=== PATIENT | male | born 1980 | race Caucasian/White ===

== ENCOUNTER 2021-08-18 15:28 | Emergency (ER) | payer OTHER, SELFPAY ==
--- NOTE | ~2021-08-18 | XR_ITS ---
EXAMINATION: RIGHT HAND AND WRIST CLINICAL INFORMATION: Laceration of ring finger COMPARISON: None TECHNIQUE: 4 views of the hand and wrist FINDINGS: There is a soft tissue laceration of the distal ring finger. There is an associated defect of bone, acute fracture avulsion, of the ulnar side of the distal tuft of the distal phalanx of the ring finger. XR/XR hand wrist RT IMPRESSION: Soft tissue laceration. Small avulsion of bone from the distal tuft at the ulnar side of the bone involving the distal phalanx of the ring finger.
[2021-08-18 15:39] VITALS: BP 131/96; PULSE 86; RESP 16; TEMP 36.8; O2SAT 96; BMI 31.9
[2021-08-18] MEDS: oxyCODONE HCl Immed Release 5 MG TABLET PO (15:52)
--- NOTE | 2021-08-18 16:09 | ED.WOUNDLAC ---
HPI - Wound/Laceration General Chief Complaint: Wound/Laceration Stated Complaint: hand lac Time Seen by Provider: 08/18/21 15:38 Source: patient Mode of arrival: ambulatory Limitations: no limitations History of Present Illness HPI narrative: This is a 41-year-old male that presents to the emergency department from home status post cutting himself with a table saw, 15 minutes prior to arrival. He cut the distal aspect his right 4th digit. He reports 10/10 throbbing pain. He states that that table saw was not archie, and had a clean blade. He does not think that there are any foreign bodies within the laceration. He is unsure if he is up-to-date on his tetanus shot. He denies any medical problems. He is [id number]. He denies numbness, and tingling. He denies chest pain, shortness of breath, fevers, chills. He is not currently taking blood thinners Onset (ago): hour(s) (1) Location: other (Right 4th digit) Extremity Location: right: hand Place: home Patient tetanus UTD: No Context: accidental Associated symptoms: pain Treatments prior to arrival: bandage Related Data Previous Rx's Medication Instructions Recorded cephalexin 500 mg capsule 500 mg PO BID 10 Days #20 cap 08/18/21 oxycodone 5 mg tablet 5 mg PO BID PRN #10 tab 08/18/21 Allergies Allergy/AdvReac Type Severity Reaction Status Date / Time bee pollen [bee stings] Allergy Swelling Verified 08/18/21 15:38 Review of Systems Review of Systems: Constitutional : No Fever, No Chills, Cardiovascular : No Chest Pain, No SOB Respiratory : No Dyspnea Gastrointestinal : No abdominal pain Musculoskeletal : No Joint Swelling Skin : + skin laceration to right 4th digit, No Foreign bodies, No rash, No surrounding erythema Neuro : No Weakness, No Numbness/tingling Psych : No SI/HI/thoughts of self injury Yes all other systems are reviewed and are negative [facility] Past Medical History Attestation statement: The following information was validated with the patient. Source: old records reviewed Social History Social History Advance Directives: No Advance Directives Information Provided: No Physical Exam Vital Signs: Vital Signs: Last Vital Signs Temp 98.3 F 08/18/21 15:39 Pulse 86 09/17/21 15:39 Resp 16 08/18/21 15:39 BP 131/96 H 08/18/21 15:39 Pulse Ox 96 08/18/21 15:39 Body Mass Index 31.9 vital signs have been reviewed as normal and appeared to be correct. Blood pressure normal. Heart rate normal. Respiration rate normal. Temperature normal. Oxygen saturation normal. Appearance: Alert. Oriented X3. No acute distress. Patient is pacing around the room, in no evident pain. Head: Normal external exam. Normocephalic. Atraumatic. Neck: Normal inspection. Neck supple. FROM. CVS: Normal heart rate and rhythm. Heart sound normal. Pulses normal throughout. No murmurs/rales/gallops. Respiratory: No respiratory distress. Painless inspiration. Back: Full range of motion noted. Skin: Skin warm and dry. Normal skin color. Normal skin turgor. No rashes/lesions/lacerations noted. Extremities: Extremities exhibit normal range of motion. + Right fouth digit distal aspect has a 4 cm jagged laceration with active bleeding that is controlled. No foreign bodies noted, or obvious deformities. No nail involvement or nail bed involvement noted. No ligamentous or nerve injury noted. No obvious deformities are noted. Neuro: Oriented X 3. No motor deficit. No sensory deficit. Reflexes normal. Normal steady gait. No focal neuro deficits noted. Vascular: + radial pulses/+ 2 distal pedal pulses/+2 dorsalis pedis b/l. Normal cap refill. No cyanosis noted to upper extremity nails and lower extremity toes nails. Course Course Course Narrative: This is a 41-year-old male that presents to the emergency department 15 minutes after cutting himself with a clean, non archie table saw. He cut his right 4th digit. There is a 4 cm jagged laceration noted to the distal aspect of the 4th digit. The bleeding is well controlled. There is no signs of arterial bleeding. There is also no signs of foreign body, or other gross abnormalities. He is unsure of his tetanus status. He is not currently on blood thinners. He is right-hand dominant. Due to the mechanism of injury, and x-ray of the right hand has been ordered to rule out foreign bodies and fractures The x-ray shows a small avulsion fracture to the right 4th digit. The laceration has been closed using 4-0 non dissolvable sutures. Nine sutures were applied to the area. He tolerated the procedure well. Plan: He has been instructed to return in 10 days, or go to his primary care provider or an urgent care to get the sutures removed. He has been educated on signs of infection, and he is aware of the plan. He has no further questions or concerns at this time. He was given medication for pain control. He will also be sent home with antibiotics, since this is technically considered an open fracture. MDM - Wound/Laceration Imaging Data X-ray of the right hand: Attestation: I personally reviewed and interpreted this imaging study as follows: Radiologist's impression: FINDINGS: There is a soft tissue laceration of the distal ring finger. There is an associated defect of bone, acute fracture avulsion, of the ulnar side of the distal tuft of the distal phalanx of the ring finger.? XR/XR hand wrist RT IMPRESSION: Soft tissue laceration. Small avulsion of bone from the distal tuft at the ulnar side of the bone involving the distal phalanx of the ring finger.? Procedures Laceration Laceration 1: Site: hand (Right worse digit. Distal ventral aspect) Side (If applicable): right Size (cm): 4 Description: other (Jagged) Depth: simple, single layer Local Anesthetic: lidocaine 1% Amount of anesthesia used (mL): 5 Pre-repair: wound explored, irrigated extensively and deep structures intact Skin layer closed with: nylon Size (cm): 4-0 Number of sutures: 9 Technique: simple, interrupted Discharge Plan Discharge Clinical Impression: Laceration, Avulsion fracture Patient Disposition: Home, Self-Care Instructions: Finger Laceration (ED), Finger Fracture (ED) Additional Instructions: Insure to clean this wound with soap and water. Keeparea clean and dry at all times. Look out for signs of infection such as discharge from the wound, fevers, chills, excruciating pain. If any of the symptoms arise please contact your PCP, return to the emergency department with new or worsening symptoms. Please ensure to take your antibiotics as directed it is important that you take them all, and do not stop taking them early. Return to the emergency department in 10 days for suture removal. You currently have 9 sutures to your left 4th finger. Prescriptions: New cephalexin 500 mg capsule 500 mg PO BID 10 Days Qty: 20 RF: 0 oxycodone 5 mg tablet 5 mg PO BID PRN (Reason: pain) Qty: 10 RF: 0 Referrals: Gabriella Arreola MD [Physician] - 2 weeks (Follow-up withwith hand surgeon in 2-3 weeks if symptoms worsen, or no improvement) Print Language: Romanian
[2021-08-18] MEDS: Diphth,Pertus(ACell),Tet Adult 0.5 ML SYRINGE IM (16:23)
[2021-08-18] MEDS: Lidocaine HCl 1 % MPF 5 ML VIAL SUBCUT ×2 (16:24)
== END 2021-08-18 17:25 | disposition home or self-care (01) ==
PROVIDERS: Emergency Provider Emergency Medicine
DX: S61.214A Laceration without foreign body of right ring finger without damage to nail, initial encounter (principal); S62.604A Fracture of unspecified phalanx of right ring finger, initial encounter for closed fracture; M79.641 Pain in right hand; W27.0XXA Contact with workbench tool, initial encounter; Y93.9 Activity, unspecified; Y92.9 Unspecified place or not applicable; Y99.9 Unspecified external cause status; Z79.899 Other long term (current) drug therapy
CPT/HCPCS: 12002; 73110; 73130; 90471; 90715; 99284

== ENCOUNTER 2021-08-28 16:36 | Emergency (ER) | payer OTHER, SELFPAY ==
[2021-08-28 18:21] VITALS: BP 135/68; PULSE 65; RESP 17; TEMP 36.6; O2SAT 97; BMI 31.0
--- NOTE | 2021-08-28 19:54 | PC.NURSE ---
PT WAS STANDING IN ROOM SWEARING ABOUT WAITING. PHILIPP NOTIFIED AND HE CAME RIGHT AFTER TO REMOVE SUTURES. SUTURES TAKEN OUT AND PATIENT LEFT PRIOR TO D/C PAPER.
--- NOTE | 2021-08-28 20:39 | ED.GENADULT ---
HPI - General Adult General Chief complaint: General Medical Stated complaint: suture removal Time Seen by Provider: 08/28/21 20:39 Source: patient Mode of arrival: ambulatory Limitations: no limitations History of Present Illness HPI narrative: Here for suture removal ring finger, no complaints. Was initially seen here for the laceration had repaired on August 18. Onset (ago): day(s) Radiation: non-radiation Severity scale (1-10): 8 Relieving factors: none Exacerbating factors: none Associated symptoms: denies other symptoms Related Data Previous Rx's Medication Instructions Recorded cephalexin 500 mg capsule 500 mg PO BID 10 Days #20 cap 08/18/21 oxycodone 5 mg tablet 5 mg PO BID PRN #10 tab 08/18/21 Allergies Allergy/AdvReac Type Severity Reaction Status Date / Time bee pollen [bee stings] Allergy Swelling Verified 08/28/21 19:02 Review of Systems Review of Systems: Constitutional: No Weight loss, No Fever, No Chills, No Night Sweats, No Fatigue, No Malaise ENT/Mouth: No Hearing loss, No Ear Pain, No Nasal Congestion, No Sinus Pain, No Hoarseness, No sore throat, No Rhinorrhea, No Swallowing Difficulty Eyes: No Eye Pain, No Swelling, No Redness, No Foreign Body, No Discharge, No Vision Changes Cardiovascular: No Chest Pain, No SOB, No Dyspnea on Exertion, No Orthopnea, No Edema, No Palpitations Respiratory: No Cough, No Sputum, No Wheezing, No Smoke Exposure, No Dyspnea Gastrointestinal: No Nausea, No Vomiting, No Diarrhea, No Constipation, No abdominal Pain, No Hematochezia, No Melena Genitourinary: no irregular bleeding, No Dysuria, No Urinary Frequency, No Hematuria, No Urinary Incontinence, No Urgency, No Flank Pain, No Urinary Flow Changes, No Hesitancy Musculoskeletal: No joint pain, No Myalgias, No Joint Swelling Skin: No Skin Lesions, No rash Neuro: No Weakness, No Numbness, No Paresthesias, No Loss of Consciousness, No Dizziness, No Headache Psych: No Social Issues Heme/Lymph: No Bruising, No Bleeding,No Lymphadenopathy Endocrine: No Polyuria, No Polydipsia, No Temperature Intolerance Yes all other systems are reviewed and are negative [facility] Past Medical History Medical History (Updated 08/28/21 @ 21:33 by Blayne Hartman NP) No known health problems Social History Social History Advance Directives: No Advance Directives Information Provided: No Physical Exam Vital Signs: Vital Signs: Last Vital Signs Temp 97.9 F 08/28/21 18:21 Pulse 65 08/28/21 18:21 Resp 17 08/28/21 18:21 BP 135/68 08/28/21 18:21 Pulse Ox 97 08/28/21 18:21 Body Mass Index 31.0 Const: General: cooperative and healthy appearing; No acute distress or intoxicated appearing Nutritional Appearance: average body habitus Orientation/consciousness: patient oriented x3 HENMT: Head: Yes normal to inspection Ears: hearing grossly normal bilaterally Eyes: General: appearance normal, both eyes and all related structures Visual Hilliard: normal visual hilliard by confrontation Neck: Neck: Yes normal visual inspection, No positive Brudzinski's sign, No positive Kernig's sign and No tender Thyroid: Thyroid normal Chest: Chest palpation & inspection: normal inspection of the chest Resp: Effort & Inspection: normal respiratory effort Auscultation: clear to auscultation bilaterally Cardio: Jugular venous distension: no JVD Rate: regular rate Rhythm: regular rhythm Heart sounds: S1 normal heart sound present and S2 normal heart sound present GI: Inspection: Yes normal to inspection Percussion: Yes normal to percussion Auscultation: normal bowel sounds : General: Yes no CVA tenderness Back/Spine/Pelvis: Back: no CVA tenderness Skin: General skin exam: no rashes or lesions noted Neuro: General: patient oriented x3 Extrem: General: Yes normal to inspection Procedures Procedure Narrative Procedure Narrative: Right ring finger with 9 intact sutures. Site appears to be well healed. Sutures removed after cleaning with topical alcohol. Sutures removed fully intact patient tolerated procedure well. Afterwards no erythema, swelling, discharge. Skin fully intact and no dehiscence. Discharge Plan Discharge Clinical Impression: Encounter for removal of sutures Patient Disposition: Home, Self-Care Additional Instructions: Patient left before getting his discharge paperwork Prescriptions: No Action cephalexin 500 mg capsule 500 mg PO BID 10 Days Qty: 20 RF: 0 oxycodone 5 mg tablet 5 mg PO BID PRN (Reason: pain) Qty: 10 RF: 0
== END 2021-08-28 21:52 | disposition home or self-care (01) ==
PROVIDERS: Emergency Provider Emergency Medicine
DX: Z48.02 Encounter for removal of sutures (principal)
CPT/HCPCS: 99283

== ENCOUNTER 2022-05-24 07:11 | Outpatient (REF) | payer OTHER, SELFPAY ==
--- NOTE | ~2022-05-24 | XR_ITS ---
EXAMINATION: XR LUMBOSACRAL SPINE CLINICAL INFORMATION: Low back pain COMPARISON: None TECHNIQUE: Three views of the lumbosacral spine. FINDINGS: 5 nonrib-bearing lumbar-type vertebral bodies. No acute visible fracture or dislocation. Mild multilevel degenerative changes with disc space narrowing, osteophyte formation lower lumbar spine facet arthropathy. Vertebral body heights and disc spaces are otherwise maintained. Posterior elements are intact. Paraspinal soft tissues are unremarkable. Visualized bowel gas is unremarkable. XR/XR lumbar spine 2-3V IMPRESSION: 1. No acute visible fracture or dislocation. 2. Mild multilevel degenerative changes.
[2022-05-24 07:53] LABS: Hemoglobin 16.3 g/dl (14.0-18.0); Mean Corpuscular Hemoglobin 30.4 pg (27.0-33.0); Mean Corpuscular Volume 89.4 fL (80.0-98.0); Mean Platelet Volume 10.2 fL (9.4-12.4); Platelet Count 274 X10*3/uL (160-400); Red Blood Count 5.37 X10*6/uL (4.60-5.80); Red Cell Distribution Width 12.4 % (11.0-16.0); White Blood Count 10.1 X10*3/uL (4.8-10.8)
[2022-05-24 08:33] LABS: Alanine Aminotransferase 40 U/L (0-40); Albumin Level 4.2 g/dL (3.5-5.0); Alkaline Phosphatase 84 U/L (39-117); Anion Gap 13 (12-20); Aspartate Amino Transferase 26 U/L (5-37); Bilirubin Total 0.5 mg/dL (0.0-1.0); Blood Urea Nitrogen 14 mg/dL (9-16); Calcium 9.3 mg/dL (8.4-10.2); Carbon Dioxide 25 mmol/L (22-29); Chloride 106 mmol/L (96-108); Cholesterol 280 mg/dL; Estimated Glomerular Filt Rate > 60; Glucose Fasting 109 mg/dL (60-99); HDL Cholesterol 40 mg/dL; LDL Cholesterol Calculated 193 mg/dl; Potassium 4.5 mmol/L (3.3-5.1); Sodium 139 mmol/L (135-145); Total Protein 7.4 g/dL (6.5-8.0); Triglycerides 236 mg/dL; Uric Acid 5.5 mg/dL (3.4-7.0)
== END 2022-05-24 07:12 | disposition home or self-care (01) ==
LOC: HO.LAB 07:11
PROVIDERS: PCP Physician Assistant; Visit Provider Physician Assistant
DX: Z13.220 Encounter for screening for lipoid disorders (principal); Z13.29 Encounter for screening for other suspected endocrine disorder; M54.50 Low back pain, unspecified; M79.675 Pain in left toe(s)
CPT/HCPCS: 36415; 72100; 80053; 80061; 84443; 84550; 85027

== ENCOUNTER 2022-08-02 07:00 | Outpatient (RCR) | payer OTHER, SELFPAY ==
[2022-07-26 07:09] VITALS: BP 147/88; PULSE 68; O2SAT 97
--- NOTE | 2022-07-26 09:02 | MHC.PT.EP ---
[facility] [place] Office [place] Office [place] Office [address] Melodie Romero [address] [phone] F: [phone] F: [phone] F: [phone] F: [phone] Physical Therapy Plan of Care Date of Evaluation: Date of Surgery: Diagnosis: THORACOLUMBAR AND LUMBOSACRAL DISC DISORDER Assessment: 42 YO MALE REF TO PT W DX OF THORACOLUMBAOSACRAL DISC DISORDER, EXACERBATED APPROX 1.5 MONTHS AGO. 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 Pt HAS DECR POSTURAL AWARENESS, INCR TISSUE TENSION IN KAY[place] THORACOLUMBAR PS MM, LIMITED HIP FLEXIB, MILD TRUNK ROM DEFICITS, AND FLUCTUATING KAYLYN THORACOLS PAIN. FUNCTIONALLY, Pt HAS DCER MARY JO TO SL IN BED, INCR SQUATTING/ BENDING, AND MORE PHYSICALLY DEMANDING OR STATICALLY HELD POSES. ). Pt WOULD BENEFIT FROM PT AT THIS TIME TO DEV A PROGR HEP, ADDRESS PAIN MGMT, AND ED/DEV SELF- SX MGMT STRATEGIES TO REDUCE RISK OF LBP EXACERBATION WITH WORK TASKS. Frequency and Duration: The patient will be seen 2x WK x 5 WKS Short Term Goals: * DECR LBP TO 2-3/10 *Pt INDEP SELF CORRECT POSTURE AND DEMON IMPROVED FUNCTIONAL SQUAT *INCREASE KAY[place]N HIP FLEXIBILITY [employer] Goals: Pt INDEP W HEP PROGRESSION AND SELF-SX MGMT STRATEGIES Pt RESUME REG ADLs EVIDENT W IMPROVED OSWESTRY SCORE Pt DEMON EFFICIENT BODY MECH W 3:3 SIMUL WORK/ ADL TASKS Treatment Plan: Modalities to reduce pain, spasms and effusion. Manual therapy to restore motion and function. Therapeutic exercise to improve strength and flexibility. Neuromuscular re-education for posture and balance. Therapeutic activities to return to functional activities of daily living. Electronically signed by: Karen MastersPT Please sign and return to therapist. Thank you for your referral.
--- NOTE | 2022-08-02 07:23 | MHC.PT.EP ---
[facility] [place] Office [place] Office [place] Office [address] Melodie Romero [address] [phone] F: [phone] F: [phone] F: [phone] F: [phone] Physical Therapy Plan of Care Date of Evaluation: Date of Surgery: Diagnosis: THORACOLUMBAR AND LUMBOSACRAL DISC DISORDER Assessment: 42 YO MALE REF TO PT W DX OF THORACOLUMBAOSACRAL DISC DISORDER, EXACERBATED APPROX 1.5 MONTHS AGO. 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 Pt HAS DECR POSTURAL AWARENESS, INCR TISSUE TENSION IN [place] THORACOLUMBAR PS MM, LIMITED HIP FLEXIB, MILD TRUNK ROM DEFICITS, AND FLUCTUATING KAYLYN THORACOLS PAIN. FUNCTIONALLY, Pt HAS DCER MARY JO TO SL IN BED, INCR SQUATTING/ BENDING, AND MORE PHYSICALLY DEMANDING OR STATICALLY HELD POSES. ). Pt WOULD BENEFIT FROM PT AT THIS TIME TO DEV A PROGR HEP, ADDRESS PAIN MGMT, AND ED/DEV SELF- SX MGMT STRATEGIES TO REDUCE RISK OF LBP EXACERBATION WITH WORK TASKS. Frequency and Duration: The patient will be seen 2x WK x 5 WKS Short Term Goals: * DECR LBP TO 2-3/10 *Pt INDEP SELF CORRECT POSTURE AND DEMON IMPROVED FUNCTIONAL SQUAT *INCREASE KAY[place]N HIP FLEXIBILITY [employer] Goals: Pt INDEP W HEP PROGRESSION AND SELF-SX MGMT STRATEGIES Pt RESUME REG ADLs EVIDENT W IMPROVED OSWESTRY SCORE Pt DEMON EFFICIENT BODY MECH W 3:3 SIMUL WORK/ ADL TASKS Treatment Plan: Modalities to reduce pain, spasms and effusion. Manual therapy to restore motion and function. Therapeutic exercise to improve strength and flexibility. Neuromuscular re-education for posture and balance. Therapeutic activities to return to functional activities of daily living. Electronically signed by: Karen MastersPT Please sign and return to therapist. Thank you for your referral.
== END 2022-08-02 07:23 | disposition home or self-care (01) ==
LOC: HO.PT 07:00
PROVIDERS: PCP Physician Assistant; Visit Provider Physician Assistant
DX: R51.9 Headache, unspecified (principal)
CPT/HCPCS: 97140; 97161; 97530

== ENCOUNTER 2022-10-18 13:24 | Outpatient (REF) | payer OTHER, SELFPAY ==
--- NOTE | 2022-10-18 09:15 | EMG_ITS ---
Bilateral median and ulnar motor and sensory studies were performed. Bilateral radial sensory studies were performed and paraspinal muscles were tested with a needle. IMPRESSION: 1. Alby-[id number]-[id number], more so on the moderate side, bilateral median neuropathy across carpal tunnel. 2. Mild bilateral ulnar neuropathy across cubital tunnel. MD RODRIGUEZ Youssef/JARVIS / [id number]
== END 2022-10-18 13:25 | disposition home or self-care (01) ==
LOC: HO.NEURO 13:24
PROVIDERS: Absent Provider Physician Assistant; PCP Physician Assistant; Visit Provider Physician Assistant
DX: Z13.89 Encounter for screening for other disorder (principal)

== ENCOUNTER 2022-11-05 06:59 | Outpatient (REF) | payer OTHER, SELFPAY ==
[2022-11-05 08:37] LABS: Alanine Aminotransferase 48 U/L (0-40); Albumin Level 4.3 g/dL (3.5-5.0); Alkaline Phosphatase 74 U/L (39-117); Anion Gap 13 (12-20); Aspartate Amino Transferase 25 U/L (5-37); Bilirubin Total 0.3 mg/dL (0.0-1.0); Blood Urea Nitrogen 13 mg/dL (9-16); Calcium 9.8 mg/dL (8.4-10.2); Carbon Dioxide 27 mmol/L (22-29); Chloride 108 mmol/L (96-108); Cholesterol 217 mg/dL; Estimated Glomerular Filt Rate > 60; Glucose Fasting 121 mg/dL (60-99); HDL Cholesterol 45 mg/dL; LDL Cholesterol Calculated 142 mg/dl; Potassium 4.6 mmol/L (3.3-5.1); Sodium 143 mmol/L (135-145); Total Protein 7.2 g/dL (6.5-8.0); Triglycerides 154 mg/dL
== END 2022-11-05 07:00 | disposition home or self-care (01) ==
LOC: HO.LAB 06:59
PROVIDERS: PCP Physician Assistant; Visit Provider Physician Assistant
DX: E78.2 Mixed hyperlipidemia (principal)
CPT/HCPCS: 36415; 80053; 80061

== ENCOUNTER → 2022-12-11 14:51 | Outpatient (BNVA) | payer OTHER, SELFPAY | PROVIDERS: PCP Physician Assistant; Visit Provider Orthopaedic Surgery | DX: Z13.89 Encounter for screening for other disorder (principal) ==

== ENCOUNTER 2023-01-16 07:19 | Outpatient (REF) | payer OTHER, SELFPAY ==
--- NOTE | ~2023-01-16 | MR_ITS ---
EXAMINATION: MR LUMBAR SPINE WITHOUT CONTRAST CLINICAL INFORMATION: Evaluate for disc herniation. Left-sided nerve root impingement. COMPARISON: Plain films of the lumbar spine 05/24/2022. TECHNIQUE: MRI of the lumbar spine was obtained using routine sequences without contrast. Some images are degraded by patient motion artifact. FINDINGS: VERTEBRAL BODIES AND PARASPINAL STRUCTURES: There is very mild levoscoliosis. There are mild retrolistheses of L2 on L3, L4 on L5 and L5 on S1. There is multilevel narrowing of intervertebral disc height with loss of signal between L2-L3 and L5-S1, most severe at L3-L4 and L4-L5. There are multilevel degenerative endplate contour changes, with mild edematous signal at L5-S1. Fatty endplate signal changes seen posteriorly at L4-L5. Vertebral body heights are maintained and no fractures are demonstrated. There is a focus of increased T1 and T2 signal in the posterior body of T12, consistent with a hemangioma. Overall, marrow signal is homogenous. There is a left sided renal cyst. The visualized pelvic structures are unremarkable. CONUS MEDULLARIS AND CAUDA EQUINA: Normal, terminating at the level of L1. The lower thoracic spinal cord appears normal. The cauda equina nerve roots and filum terminale appear normal. SPINAL LEVELS: T12-L1: The facet joints appear normal bilaterally. Disc contour is normal. There is no central stenosis or foraminal narrowing. L1-L2: There is mild bilateral facet arthropathy. Disc contour is normal. There is no central stenosis or foraminal narrowing. L2-L3: There is mild to moderate bilateral facet arthropathy. There is a posterior disc protrusion which is focally most prominent just to the right of midline with minimal distortion of the ventral thecal sac. There is no central stenosis. The neural foramina are patent bilaterally. L3-L4: There is moderate bilateral facet arthropathy. There is a mild diffuse disc bulge, and there is a left foraminal disc protrusion with an annular fissure impinging on the exiting left L3 nerve root. There is no central stenosis. L4-L5: There is mild bilateral facet arthropathy with ligamenta flava hypertrophy and facet joint effusions. There is a posterior disc protrusion with an annular fissure which extends into the neural foramina bilaterally, and far laterally on the right greater than left with impingement on the extraforaminal L4 nerve roots bilaterally. There is mild narrowing of the subarticular recesses, but there is no central stenosis. L5-S1: There is moderate bilateral facet arthropathy. There is a posterior disc protrusion with an extruded component extending behind the body of S1. There is some distortion the ventral thecal sac, and there is impingement on the left greater than right traversing S1 nerve root. There are prominent bilateral foraminal disc protrusions with impingement on the exiting L5 nerve roots, more severe on the left. There is no central stenosis. MR/MR lumbar spine wo con IMPRESSION: 1. At L5-S1 there is a posterior disc protrusion with an extruded component. There is impingement on the traversing S1 nerve roots and there are prominent bilateral foraminal disc protrusions impinging on the exiting L5 nerve roots. There is no central stenosis. 2. At L4-L5 there is a posterior disc protrusion extending far laterally on the right greater than left with impingement on the extraforaminal L4 nerve roots bilaterally. There is no central stenosis. 3. At L3-L4 there is facet arthropathy and there is a left foraminal disc protrusion impinging on the exiting left L3 nerve root. There is no central stenosis.
== END 2023-01-16 07:20 | disposition home or self-care (01) ==
LOC: HO.MRI 07:19
PROVIDERS: Visit Provider Physical Medicine & Rehabilitation
DX: G54.4 Lumbosacral root disorders, not elsewhere classified (principal)
CPT/HCPCS: 72148

== ENCOUNTER → 2023-02-12 08:34 | Outpatient (BNVA) | payer OTHER, SELFPAY | PROVIDERS: PCP Physician Assistant; Visit Provider Orthopaedic Surgery ==

== ENCOUNTER 2023-03-07 06:05 | Day surgery (SDC) | payer OTHER, SELFPAY ==
[2023-03-01 12:18] VITALS: BMI 33.4
[2023-03-07] VITALS (7 sets, daily range): BP systolic 122–155; BP diastolic 77–95; PULSE 67–75; RESP 15–16; TEMP 36.6–37.1; O2SAT 94–99
--- NOTE | 2023-03-07 07:54 | MHC.SHP ---
Pre-Procedural Eval Section A Date of Service: 03/07/23 The patient is an INPATIENT: No Changes since office visit: No Cold of Flu in the past 2 weeks, No New Medical Problems, No Changes in Medication and No Patient answered all questions The History & Physical has been completed within 30 days and I have reviewed it.: Yes Section B Chief Complaint: Carpal tunnel syndrome,Lesion of ulnar nerve, left Allergies: Allergies Allergy/AdvReac Type Severity Reaction Status Date / Time bee pollen [bee stings] Allergy Swelling Verified 02/12/23 08:36 Exam Exam Comment: Sensation intact to the tips of all digits today in preop hold No intrinsic or thenar wasting Good finger cross Plan I have reviewed the history and physical and performed a pertinent physical examination on my patient. No changes have occurred unless specified. We will be proceeding with a right cubital tunnel release versus ulnar nerve transposition, and a right carpal tunnel release Time Spent With Patient Time: Total time managing care of this patient today ____ minutes.
--- NOTE | 2023-03-07 07:55 | W.PM.OPN ---
Operative Note Operative Note Date of Service: 03/07/23 Narrative: Operative Note Narrative: Preop diagnosis: 1. Right Cubital tunnel syndrome 2. Right carpal tunnel syndrome Postop diagnosis: Same Procedure: 1. Right Cubital Tunnel Release 2. Right carpal tunnel release Surgeon: Gabriella Arreola MD Anesthesia: General Anesthesia Findings: Thickening and fibrosis about the ulnar nerve at the cubital tunnel Implants: none Tourniquet time: 3 2 minutes EBL: 5.0 ml Specimen: none Drains: None Complications: None Disposition: Brought to the recovery room in stable condition Plan: Follow-up in 10-14 days for wound check, and suture removal Indications: The patient is 43 years old with right cubital tunnel syndrome and right carpal tunnel syndrome . The risks and benefits of operative treatment, including but not limited to risk of damage to blood vessels, nerves, tendons, infection, recurrence, persistent pain or numbness, incomplete resolution of preoperative symptoms, or need for further surgery were discussed with the patient and they wished to proceed with surgery. Procedure: Once consent was obtained patient was brought back to the operating suite and placed in the operating table in a supine position. Perioperative antibiotics and anesthesia was administered by the anesthesia team. The limb was prepped and draped in a standard surgical fashion, and a sterile tourniquet applied to the proximal aspect of the right upper extremity. The limb was elevated exsanguinated with Esmarch bandage and the tourniquet inflated to 250 mm of mercury for a total tourniquet time of 32 minutes. Once assured that we had a good block, a 2.0 cm longitudinal incision was made centered over the right carpal tunnel. The incision was made through the skin to the subcutaneous tissues using a #15 blade. Dissection was made down to the level of the transverse carpal ligament with care being taken to protect the palmar cutaneous nerve. Once the transverse carpal ligament was clearly visualized, a longitudinal incision was made in the transverse carpal ligament 1st using a #15 blade, then using tenotomy scissors under direct visualization. Care was taken to look for and protect the motor branch of the median nerve when seen in this area. Once satisfied with our carpal tunnel release the wound was irrigated with normal saline. A 6 cm gently curved but longitudinally oriented incision was made centered over the cubital tunnel of the right upper extremity. Incision was made through the skin to the subcutaneous tissues using a # 15 Blade. I then dissected down to the level of the medial epicondyle and the cubital tunnel using tenotomy scissors. Care was taken to protect the lateral antebrachial cutaneous nerve. The ulnar nerve was identified just posterior to the medial intermuscular septum. The ulnar nerve was released in a proximal to distal direction using tenotomy in iris scissors while directly visualizing and protecting the ulnar nerve. Thickening and fibrosis was appreciated about the ulnar nerve as it passed through the cubital tunnel. The ulnar nerve was assessed as I passed the elbow through full flexion and extension and was found to remain stable within its groove. At this point the tourniquet was deflated and hemostasis obtained with a brief period of local pressure and bipolar electrocautery. The wounds were copiously irrigated with normal saline. The subcutaneous layer was closed with 4-0 Vicryl suture, and the skin edges were reapproximated with 5-0 nylon suture. The wound was infiltrated with some 0.5% plain ropivacaine for postop pain control and sterile dressings and a posterior splint was applied. The patient appears to have tolerated the procedure well and with no complications. All digits were well vascularized conclusion of the case.
--- NOTE | 2023-03-07 08:34 | P.CONAN_ITS ---
HPI - Anesthesia Eval Consult details Narrative: Capral Tunnel release right ulnar n cubital fossa release PMFSH Active Problems Active Problems: All Active Problems (Updated 03/01/23 @ 12:07 by Mary Ann Magana RN) Annual physical exam (Acute) Obese (Acute) Screening for hypothyroidism (Acute) Screening for hypercholesterolemia (Acute) Screening for diabetes mellitus (DM) (Acute) Toe pain (Acute) Lumbar spine pain (Acute) Elevated blood pressure reading (Acute) Hyperlipidemia (Acute) Arthritis of lumbar spine (Acute) Hand paresthesia (Acute) Paresthesia of hand, bilateral (Acute) Carpal tunnel syndrome on both sides (Acute) Left sciatic nerve pain (Acute) Carpal tunnel syndrome of right wrist (Acute) Carpal tunnel syndrome of left wrist (Acute) Cubital tunnel syndrome on right (Acute) Cubital tunnel syndrome on left (Acute) Past Medical History Medical History (Updated 03/01/23 @ 12:07 by Mary Ann Magana RN) Arthritis Elevated cholesterol Family History Family history of problems with anesthesia: No Surgical History History of Problems with Anesthesia: No Social History Social History Housing: House Alcohol intake: current Alcohol intake frequency: holidays/special occasions only Alcohol type: beer Patient Tobacco Use Status: Never used Tobacco e-Cigarette/Vaping Use: Never Used Use of substances other than those prescribed or required for medical reasons: Yes Substance Use Type: Marijuana Are you DNR?: No Advance Directives: No Advance Directives Information Provided: Yes Advance Directives on File: No service: No Current occupational status: employed Current occupation: [employer] - [employer]. Cognitive needs: No Hearing needs: No Vision needs: No Meds Allergies Allergy/AdvReac Type Severity Reaction Status Date / Time bee pollen [bee stings] Allergy Swelling Verified 02/12/23 08:36 Exam Exam Date and Time: March 07, 2023 0834 Height,Weight and Vital Signs: Height 5 ft 8 in Weight 99.79 kg Last Vital Signs Temp 98.2 F 03/07/23 06:33 Pulse 75 03/07/23 06:33 Resp 16 03/07/23 06:33 BP 155/95 H 03/07/23 06:33 Pulse Ox 99 03/07/23 06:33 O2 Del Method Room Air 03/07/23 06:33 Airway Mallampati Class: I TM Dist: >3cm Neck ROM: Limited (limited to right rotation, extension and flexion ok) Heart: rr Lungs: cta Assessment and Plan Assessment Anesthesia Assessment: Anesthesia Plan Discussed and Chart Reviewed Final Anesthetic Review Family History of Problems with Anesthesia: No History of Problems with Anesthesia: No NPO: Yes ASA Class: I Final Preanesthetic Review: No Changes in Pt Med Stat, Meds/Allgs Chart Reviewed, Consent Obtained/Reviewed and Anes Risks/Benef Reviewed Patient Risk: Low Procedure Risk: Low Anesthetic Plan Anesthetic Plan: GA and Agree w/ Assess. and Plan Disposition: Standard PACU
== END 2023-03-07 13:45 | disposition home or self-care (01) ==
PROVIDERS: PCP Physician Assistant; Visit Provider Orthopaedic Surgery
PROC: (CPT 64721; principal; 2023-03-07 07:30)
PROC: (CPT 64718; 2023-03-07 07:30)
DX: G56.01 Carpal tunnel syndrome, right upper limb (principal); G56.21 Lesion of ulnar nerve, right upper limb
CPT/HCPCS: 64721; 64718; J0690; J1100; J2250; J2405; J2795; J3010

== ENCOUNTER → 2023-03-20 13:28 | Outpatient (BNVA) | payer OTHER, SELFPAY | PROVIDERS: PCP Physician Assistant; Visit Provider Orthopaedic Surgery ==

== ENCOUNTER 2023-05-08 06:56 | Outpatient (REF) | payer OTHER, SELFPAY ==
[2023-05-08 07:53] LABS: Estimated Average Glucose 103 mg/dL; Hemoglobin A1c % 5.2 %
[2023-05-08 07:58] LABS: Hematocrit 45.4 % (42.0-52.0); Hemoglobin 15.6 g/dl (14.0-18.0); Mean Corpuscular HGB Conc 34.4 g/dl (31.0-36.0); Mean Corpuscular Hemoglobin 31.3 pg (27.0-33.0); Mean Platelet Volume 10.3 fL (9.4-12.4); Platelet Count 271 X10*3/uL (160-400); Red Blood Count 4.99 X10*6/uL (4.60-5.80); Red Cell Distribution Width 12.3 % (11.0-16.0); White Blood Count 7.7 X10*3/uL (4.8-10.8)
[2023-05-08 08:06] LABS: Alanine Aminotransferase 50 U/L (0-40); Albumin Level 4.2 g/dL (3.5-5.0); Alkaline Phosphatase 73 U/L (39-117); Anion Gap 11 (12-20); Aspartate Amino Transferase 29 U/L (5-37); Bilirubin Total 0.5 mg/dL (0.0-1.0); Blood Urea Nitrogen 15 mg/dL (9-16); Calcium 9.3 mg/dL (8.4-10.2); Carbon Dioxide 25 mmol/L (22-29); Chloride 110 mmol/L (96-108); Cholesterol 233 mg/dL; Estimated Glomerular Filt Rate > 60; Glucose Fasting 107 mg/dL (60-99); HDL Cholesterol 43 mg/dL; LDL Cholesterol Calculated 160 mg/dl; Potassium 4.4 mmol/L (3.3-5.1); Sodium 142 mmol/L (135-145); Total Protein 6.9 g/dL (6.5-8.0); Triglycerides 150 mg/dL
== END 2023-05-08 06:57 | disposition home or self-care (01) ==
LOC: HO.LAB 06:56
PROVIDERS: PCP Physician Assistant; Visit Provider Physician Assistant
DX: E78.2 Mixed hyperlipidemia (principal); R73.01 Impaired fasting glucose
CPT/HCPCS: 36415; 80053; 80061; 83036; 85027

== ENCOUNTER 2023-07-30 13:15 | Outpatient (AMB) | payer OTHER, SELFPAY ==
--- NOTE | 2023-07-30 13:29 | HO.SPINEOV ---
Intake Intake Visit Reasons: Low back pain Intake Note: Mr. Jefferson is here today c/o low back pain. MRI @ [facility] [place]. 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 HPI: This 43-year-old male developed a left sided leg pain more than a year ago. The pain comes in the afternoon and his so severe that he is limping. The pain radiates into his left hip to the outside of his thigh and down the outside of his lower leg. The pain diffuse like a severe cramp. He denies numbness or weakness. Rest like a vacation improves the symptoms. He had 2 injections in the lumbar spine. 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 The right side is unaffected. The following conservative treatment options were tried without success antiinflammatories, tylenol, cortisone shots PMH: Hypercholesteremia Social history: Girlfriend. Nonsmoker. Medications: Simvastatin, gabapentin, diclofenac Allergies: NKDA Physical Exam: Pleasant male, who is having a good day according to the patient. He has minor cramp like feeling in the left thigh. No objective findings on neurological exam. Radiological Studies: MRI done at [facility] shows severe left L5 foraminal stenosis with compression of the left L5 nerve root and a mild central disc bulge at L5-S1 without nerve compression. Impression/Plan: This patient is suffering from a left L5 radiculopathy caused by severe L5 foraminal stenosis. I reviewed the imaging in detail with the patient and offered him a left L5 foraminotomy. We discussed the procedure and expected postoperative outcome. The best time for the patient is in November. He is scheduled for 11/07/2023. Thank you for allowing me to participate in your patients care. total time spent was 50 minutes in counseling ,coordination of plan, personal review of imaging, surgical decision making and subsequent plan Mike Salazar MD, PhD Spine Fellowship Trained Neurosurgeon Director, [facility] Coding Level of Care Code New Pt Level 4 (53741) Diagnoses Left sciatic nerve pain M54.32 Neuroforaminal stenosis of lumbar spine M48.061
== END 2023-07-30 14:02 | disposition home or self-care (01) ==
PROVIDERS: PCP Physician Assistant; Referring Provider Physical Medicine & Rehabilitation; Visit Provider Neurological Surgery
DX: M54.32 Sciatica, left side (principal); M48.061 Spinal stenosis, lumbar region without neurogenic claudication
CPT/HCPCS: 99204

== ENCOUNTER → 2023-07-30 13:15 | Outpatient (BNVA) | payer OTHER, SELFPAY | PROVIDERS: PCP Physician Assistant; Visit Provider Neurological Surgery | DX: M54.32 Sciatica, left side (principal); M48.061 Spinal stenosis, lumbar region without neurogenic claudication | CPT/HCPCS: 99202 ==

== ENCOUNTER 2023-08-29 08:18 | Outpatient (AMB) | payer OTHER, SELFPAY ==
[2023-08-29 08:42] VITALS: BP 124/70; PULSE 78; O2SAT 97; BMI 36.3
--- NOTE | 2023-08-29 08:42 | A.OFFPC_ITS ---
Vital Signs 08/29/23 08:42 Height 5 ft 8 in Weight 239 lb BMI 36.3 BP 124/70 Blood Pressure Location Lt brachial Position Sitting Pulse 78 Pulse Source Pulse Oximeter Pulse Oximetry (%) 97 Oxygen Delivery Method Room Air Intake Visit Reasons: f/u HLD/ weight check Allergies bee pollen [bee stings] Allergy (Verified 08/29/23 08:52) Swelling Medication List - Last Reconciled 08/29/23 by Missael Bear PA-C diclofenac sodium 50 mg PO BID 30 days gabapentin 100 mg PO BID 30 days simvastatin 20 mg PO DAILY 90 days Tobacco use date assessed: 05/02/23 Dental Screening Dental Screen Date: 08/29/23 Did you have a dental visit in the last 12 months?: Yes Did you have a dental problem in the last 6 months where you did not have access to dental care?: No Was dental information given to patient?: Patient has dentist HPI f/u HLD/ weight check HPI Details Patient is a 43-year-old male here today for routine annual physical.? Patient has a past medical history significant for hyperlipidemia, elevated blood pressure readings, obesity, lumbar disc disease Lumbar disc disease: Has been found to neural foraminal stenosis lumbar spine. Has received injections which were not effective on reducing his pain. Has been using diclofenac and gabapentin for his lower back pain which has not been affective. MRI of the lumbar spine does show disc dysfunction lower in his lumbar spine. Has been followed by neurosurgeon and anticipates to get surgery in November of 2023 .. Hyperlipidemia:? Has been adherent to the use of statin therapy.? Has been able to lose weight since last office visit.? Has been reducing his high cholesterol foods in his diet. .. Obesity:? Unfortunately did not lose any weight since last office visit. BMI remains at 36.3. He does report being physically active headaches job. He admits to adapting to better eating habits though does eat a lot of ice cream. .. Elevated fasting blood sugar: Noted elevated fasting blood sugar most recent labs. Will continue to follow fasting blood sugar and A1c. .. 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 Cognitive needs: No Hearing needs: No Vision needs: No Questionnaire PHQ-9 Over the last 2 weeks, how often have you been bothered by any of the following problems? 1. Little interest or pleasure in doing things: not at all 2. Feeling down, depressed, or hopeless: not at all 3. Trouble falling or staying asleep, or sleeping too much: not at all 4. Feeling tired or having little energy: not at all 5. Poor appetite or overeating: not at all 6. Feeling bad about yourself - or that you are a failure or have let yourself or your family down: not at all 7. Trouble concentrating on things, such as reading the newspaper or watching television: not at all 8. Moving or speaking so slowly that other people could have noticed. Or the opposite - being so fidgety or restless that you have been moving around a lot more than usual: not at all 9. Thoughts that you would be better off or of hurting yourself in some way: not at all Total score: 0 Depression Screening Interpretation: Negative 91397 - PHQ-9 Billing: Yes Source: Developed by Drs. Linden Villagomez, Harmony Henry, Frederic Gutierrez and colleagues, with an educational kelsie from [employer]. Thrive Questionnaire Date Thrive assessed: 08/29/23 I am a: Patient What is your living situation today?: I have a steady place to live Within the past 12 months, did the food you bought not last and you didn't have the money to get more?: Never true Within the past 12 months, did you worry whether your food would run out before you got money to buy more?: Never true Do you have trouble paying for medicines?: No Do you have trouble getting transportation to medical appointments?: No Do you have trouble paying your heating and electricity bill?: No Do you have trouble taking care of your child, family member or friend?: No Do you have trouble with day-to-day activities such as bathing, preparing meals, shopping, managing finances, etc.?: No Are you currently unemployed and looking for a job?: No Are you interested in more education?: No Currently or been in a relationship where the following occur: no concerns reported AUDIT C Alcohol Use Questionnaire (AUDIT-C) 1. How often do you have a drink containing alcohol?: Monthly or less 2. How many drinks containing alcohol do you have on a typical day when you are drinking?: 1 or 2 3. How often do you have six or more drinks on one occasion?: Never Total Score: 1 ZHNEG-7 AMB Questionnaire ZHENG-7 Date ZHENG - 7 assessed: 05/02/23 Source: Developed by Drs. Linden Villagomez, Harmony Henry, Frederic Gutierrez and colleagues, with an educational kelsie from [employer]. Review of Systems Const Denies headache(s) Eyes Denies loss of vision ENT Denies vertigo, Denies dizziness, Denies headache(s) and Denies sore throat Card Denies chest pain, Denies leg edema and Denies lightheadedness Resp Denies cough, Denies hemoptysis and Denies wheezing GI Denies abdominal pain, Denies melena, Denies constipation, Denies diarrhea and Denies vomiting Denies dysuria, Denies urinary frequency and Denies urinary urgency Musc Denies arthralgias, Denies joint swelling, Denies numbness and Denies tingling Neuro Denies Abnormal speech present, Denies behavioral changes, Denies vertigo, Denies dizziness, Denies headache(s), Denies loss of vision, Denies memory loss, Denies numbness and Denies tingling Psych Denies anxiety, Denies behavioral changes, Denies depression, Denies memory loss and Denies panic attacks Arnold/Lymph Denies easy bleeding and Denies easy bruising Aller/Immun Denies wheezing Physical exam (Primary Care) Vital Signs: Last Vital Signs Pulse 78 08/29/23 08:42 BP 124/70 08/29/23 08:42 Pulse Ox 97 08/29/23 08:42 Oxygen Delivery Method Room Air 08/29/23 08:42 BMI result Body Mass Index 36.3 BMI Assessment/Plan discussion: High Tobacco/Smoking Status: Tobacco use Status Tobacco use date assessed 05/02/23 08/29/23 08:47 Patient Tobacco Use Status Former Tobacco user 08/29/23 08:47 Tobacco use type Cigarette 08/29/23 08:47 e-Cigarette/Vaping Use Never Used 08/29/23 08:47 PHQ-9: PHQ-9 Score PHQ-9: Total score 0 08/29/23 08:53 Depression Screening Interpretation: Negative Thrive Assessment: Date of Thrive Assessment Date Thrive assessed 08/29/23 08/29/23 08:47 Currently or been in a relationship where the following occur: no concerns reported Const Other: Obese General: healthy appearing, no acute distress, alert and awake Nutritional Appearance: well nourished Orientation/consciousness: oriented to person, oriented to place and oriented to time HENMT Ears: TM's normal bilaterally General nose exam: Normal nasal mucous membranes and turbinates present Eyes Conjunctivae: conjunctivae normal Sclerae: sclerae normal Pupils: Equal, round and reactive pupils present Neck Neck: Yes no lymphadenopathy and Yes no JVD Thyroid: Thyroid normal Carotids: no bruits Resp Effort & Inspection: normal respiratory effort and not tachypneic Auscultation: no crackles, no rales, no rhonchi and no wheezes Cardio Rate: regular rate Rhythm: regular rhythm Heart sounds: no murmurs and normal S1 and S2 GI Palpation (GI): Soft to palpation, nontender, no hepatomegaly and no splenomegaly Auscultation: normal bowel sounds Skin General skin exam: no rashes or lesions noted and dry skin Neuro General: oriented to person, oriented to place and oriented to time Cranial nerves: Yes Equal, round and reactive pupils present Speech: No Abnormal speech present Gait exam (Neuro): Normal gait present Motor exam (neuro): no tremor noted Extrem Right upper extremity: full ROM Left upper extremity: full ROM Right lower extremity: full ROM; no edema Left lower extremity: full ROM; no edema Psych Mental Status: mental status grossly normal Speech and movement: Normal speech and movement present Affect: normal affect Attitude: cooperative Thought process: Normal thought process present Assessment and Plan Assessment & Plan (1) Obese: Code(s): E66.9 - Obesity, unspecified Qualifiers: Body mass index: BMI 34.0-34.9 Obesity classification: adult class 1 (BMI 30 - 34.9) Obesity type: due to excess calories Serious obesity comorbidity presence: without serious comorbidity Qualified Code(s): E66.09 - Other obesity due to excess calories; Z68.34 - Body mass index [BMI] 34.0-34.9, adult Plan: Week a noted since last office visit. Does recently return back to work and intense to reduce his weight. (2) Lumbar spine pain: Code(s): M54.50 - Low back pain, unspecified Plan: Patient followed by program management specialist, physical therapy has been done in the past though felt it made his back pain worse. He is now seeing a neurosurgeon to and will be scheduled for surgery in November to fix his lumbar disc. He anticipates better pain relief with surgery. He reports his back pain is worse after her 8-10 hour work shifts. 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 (3) Elevated fasting blood sugar: Code(s): R73.01 - Impaired fasting glucose Plan: Patient has a elevated fasting blood sugar most recent labs. Will continue to work on weight reduction and low-carbohydrate diet. (4) Hyperlipidemia: Code(s): E78.5 - Hyperlipidemia, unspecified Qualifiers: Hyperlipidemia type: mixed hyperlipidemia Qualified Code(s): E78.2 - Mixed hyperlipidemia Plan: Patient continues on daily simvastatin 20 mg. Advised to get fasting labs done to evaluate for approved total cholesterol and LDL Orders: Orders TSH reflex Free T4 Today E78.2 - Mixed hyperlipidemia Lipid Panel Today E78.2 - Mixed hyperlipidemia Comprehensive [place]. Panel Fast Today E78.2 - Mixed hyperlipidemia Medications: Discontinued diclofenac sodium Discontinued Reason: Doctor's Order 50 mg PO BID 30 days 60 tabs 3RF M47.816 - Spondylosis without myelopathy or radiculopathy, lumbar region gabapentin Discontinued Reason: Doctor's Order 100 mg PO BID 30 days 60 caps 1RF M54.50 - Low back pain, unspecified Coding Level of Care Code Est Pt Level 4 (47098) Diagnoses Class 1 obesity due to excess calories without serious comorbidity with body mass index (BMI) of 34.0 to 34.9 in adult E66.09; Z68.34 Body mass index: BMI 34.0-34.9 Obesity classification: adult class 1 (BMI 30 - 34.9) Obesity type: due to excess calories Serious obesity comorbidity presence: without serious comorbidity Lumbar spine pain M54.50 Elevated fasting blood sugar R73.01 Mixed hyperlipidemia E78.2 Hyperlipidemia type: mixed hyperlipidemia
== END 2023-08-29 09:07 | disposition home or self-care (01) ==
PROVIDERS: PCP Physician Assistant; Visit Provider Physician Assistant
DX: E66.09 Other obesity due to excess calories (principal); Z68.34 Body mass index [BMI] 34.0-34.9, adult; M54.50 Low back pain, unspecified; R73.01 Impaired fasting glucose; E78.2 Mixed hyperlipidemia
CPT/HCPCS: 99214

== ENCOUNTER 2023-11-07 05:57 | Day surgery (SDC) | payer OTHER, SELFPAY ==
[2023-10-23 12:54] VITALS: BMI 35.0
--- NOTE | 2023-11-06 10:39 | P.CONAN_ITS ---
Documented by User: Rama Dsouza NP 11/06/23 10:40 HPI - Anesthesia Eval Consult details Narrative: 43yo M for Left L5 Foraminotomy s/p carpal tunnel 03/2023 with GA-LMA 4 PMFSH Active Problems Active Problems: All Active Problems (Updated 10/23/23 @ 12:54 by Milly Drummond, SIVAKUMAR) Neuroforaminal stenosis of lumbar spine (Acute) Elevated fasting blood sugar (Acute) Borderline high cholesterol (Acute) Cubital tunnel syndrome on left (Acute) Cubital tunnel syndrome on right (Acute) Carpal tunnel syndrome of left wrist (Acute) Carpal tunnel syndrome of right wrist (Acute) Left sciatic nerve pain (Acute) Carpal tunnel syndrome on both sides (Acute) Paresthesia of hand, bilateral (Acute) Arthritis of lumbar spine (Acute) Hyperlipidemia (Acute) Elevated blood pressure reading (Acute) Lumbar spine pain (Acute) Toe pain (Acute) Screening for diabetes mellitus (DM) (Acute) Screening for hypercholesterolemia (Acute) Screening for hypothyroidism (Acute) Obese (Acute) Annual physical exam (Acute) Past Medical History Medical History Loud snoring Arthritis Elevated cholesterol Family History Family history of problems with anesthesia: No Surgical History Surgical History History of carpal tunnel surgery of right wrist History of Problems with Anesthesia: No Social History Social History Household Members: Significant Other Housing: House Are you a primary caregivers non medical to a significant other at home: No Do you presently have visiting nurse or other home services: No 75 years or older and lives alone: No Alcohol intake: current Alcohol intake frequency: holidays/special occasions only Alcohol type: beer Patient Tobacco Use Status: Former Tobacco user Quit Date: 2006 Tobacco use type: Cigarette e-Cigarette/Vaping Use: Never Used Second Hand Smoke Exposure: Yes Substance Use Type: Marijuana service: No Current occupational status: employed Current occupation: [employer] - [employer]. Cognitive needs: No Hearing needs: No Vision needs: No Meds Allergies Allergy/AdvReac Type Severity Reaction Status Date / Time bee pollen [bee stings] Allergy Severe Swelling Verified 11/07/23 06:25 Home Medications Medication Instructions Recorded Confirmed Last Taken Type Balance Of Nature Supplement 1 cap PO DAILY 10/23/23 11/07/23 Unknown History Exam Height,Weight and Vital Signs: Height 5 ft 8 in Weight 104.326 kg Pertinent Lab Results Pertinent Lab Results: Laboratory Tests 05/08/23 07:02 WBC 7.7 Hgb 15.6 Hct 45.4 Plt Count 271 Sodium 142 Potassium 4.4 Chloride 110 H Carbon Dioxide 25 BUN 15 Creatinine 0.96 Assessment and Plan Assessment Anesthesia Assessment: Chart Reviewed Final Anesthetic Review Family History of Problems with Anesthesia: No History of Problems with Anesthesia: No Documented by User: Jayson Zelaya MD 11/07/23 14:42 [facility] Past Medical History Medical History Loud snoring Arthritis Elevated cholesterol Surgical History Surgical History History of carpal tunnel surgery of right wrist Social History Social History Household Members: Significant Other Housing: House Are you a primary caregivers non medical to a significant other at home: No Do you presently have visiting nurse or other home services: No 75 years or older and lives alone: No Alcohol intake: current Alcohol intake frequency: holidays/special occasions only Alcohol type: beer Patient Tobacco Use Status: Former Tobacco user Quit Date: 2006 Tobacco use type: Cigarette e-Cigarette/Vaping Use: Never Used Second Hand Smoke Exposure: Yes Substance Use Type: Marijuana service: No Current occupational status: employed Current occupation: [employer]. Cognitive needs: No Hearing needs: No Vision needs: No Meds Allergies Allergy/AdvReac Type Severity Reaction Status Date / Time bee pollen [bee stings] Allergy Severe Swelling Verified 11/07/23 06:25 Home Medications Medication Instructions Recorded Confirmed Last Taken Type Balance Of Nature Supplement 1 cap PO DAILY 10/23/23 11/07/23 Unknown History Exam Airway Mallampati Class: II TM Dist: >3cm Neck ROM: Full Loose/Missing/Broken Teeth: No Assessment and Plan Assessment Anesthesia Assessment: Anesthesia Plan Discussed Final Anesthetic Review NPO: Yes ASA Class: II Final Preanesthetic Review: No Changes in Pt Med Stat, Meds/Allgs Chart Reviewed, Consent Obtained/Reviewed and Anes Risks/Benef Reviewed Patient Risk: Low Procedure Risk: Low Anesthetic Plan Anesthetic Plan: GA Disposition: Standard PACU
[2023-11-07] VITALS (9 sets, daily range): BP systolic 126–162; BP diastolic 55–96; PULSE 63–82; RESP 16–20; TEMP 36.6–36.9; O2SAT 94–99; BMI 34.6
--- NOTE | ~2023-11-07 | FL_ITS ---
EXAMINATION: XR FLUOROSCOPY WITH IMAGES CLINICAL INFORMATION: L5 foraminotomy, left side. COMPARISON: None available. TECHNIQUE: Fluoroscopy Supervised By: Dr. Mike Salazar. Fluoroscopy Time: 0.0 minutes. Cumulative Dose: 3.07 mGy. DAP: 0.602 Gycm2. Images: 1. FINDINGS: Image demonstrates surgical instruments and probes posterior to the L5-S1 disc space FL/FL guidance in OR IMPRESSION: Fluoroscopy guidance for lumbar spine surgery.
[2023-11-07] MEDS: methocarbamoL 750 MG TABLET PO (07:00)
[2023-11-07] MEDS: Gabapentin 300 MG CAPSULE PO (07:00)
[2023-11-07] MEDS: Lactated Ringers 1,000 ML 100 ML IVCONT (07:00)
--- NOTE | 2023-11-07 07:17 | MHC.SHP ---
Pre-Procedural Eval Section A Date of Service: 11/07/23 The patient is an INPATIENT: No Changes since office visit: No Cold of Flu in the past 2 weeks, No New Medical Problems, No Changes in Medication and No Patient answered all questions The History & Physical has been completed within 30 days and I have reviewed it.: No Section B Chief Complaint: Sciatica, left side,Spinal stenosis, lumbar region Allergies: Allergies Allergy/AdvReac Type Severity Reaction Status Date / Time bee pollen [bee stings] Allergy Severe Swelling Verified 11/07/23 06:25 Review of Systems Sugical H&P ROS: Negative: Constitution, Cardiovascular, Respiratory, Neurological, Psychiatric, Hem-Onc, Allergic/Immunologic, Gastrointestinal, Genitourinary, Musculoskeletal, Integumentary, Endocrine and Eyes/Ears/Nose/Throat Exam Surgical H&P Exam: Not Evaluated: HEENT, Not Evaluated: Heart, Not Evaluated: Lungs, Not Evaluated: Extremities, Not Evaluated: Abdomen, Not Evaluated: Skin and Not Evaluated: Neurological Plan Diagnosis/Plan: Unchanged I have reviewed the history and physical and performed a pertinent physical examination on my patient. No changes have occurred unless specified. left L5 foraminotomy Time Spent With Patient Time: Total time managing care of this patient today _7___ minutes.
--- NOTE | 2023-11-07 09:04 | W.PM.OPN ---
Operative Note Operative Note Date of Service: 11/07/23 Narrative: Preoperative Diagnosis: Spinal stenosis/lateral recess stenosis/neural foraminal stenosis Operation: Left L5 Laminotomy, Partial facetectomy and foraminotomy with use of microscope Consent Informed Consent was obtained for this operation. I have explained the nature, purpose and benefits of the operation. I have discussed the risks and benefit of the operation including possible complications or adverse events with patient/family. Alternative(s) were discussed with the patient with their relative benefits and risks as well as the consequences of not accepting the operation were included in obtaining consent. Surgeon: KEITH GUZMAN MD, PHD Procedure Assisted By: Christiano Cordero Description of Procedure this 43-year-old male suffer from left L5 radiculopathy due to severe L5 neuroforaminal stenosis. The patient was offered a decompression of the nervous structures. The procedure complications were explained. The patient was consented. The patient was brought to the operating room and endotracheally intubated. The patient was turned in prone position on the Ankit frame. Prep and drape was done followed by timeout. Physician catering administrative assistant provided access. A mid lumbar incision was made followed by release of the paravertebral muscle on the left side to expose the L5 lamina and facet joint. An intraoperative x-ray was obtained to confirm the correct level. The microscope was brought in. I took over the procedure. The high-speed drill was used to do a L5 laminotomy. #2 Kerrison was used to further remove the lamina towards the L5 foramen. With a nerve hook the medial wall of the L5 pedicle was palpated as well as the beginning of the L5 foramen. The facet joint was partially drilled down after which with a #2 Kerrison a foraminotomy was done. Finally a foraminotomy Kerrison was used to complete the foraminotomy. A long the nerve root could be easily passed, a sign of relief of the neuroforaminal stenosis and decompression of the nerve root . The microscope was removed. Hemostasis was done. Incision was closed in 2 layers. Steri-Strips were used to approximate incision. An OpSite with Tegaderm was used to cover the incision. All sponge needle counts were correct. Patient was extubated and transported in stable is to recovery room. Anesthesia: General Estimated Blood Loss (ml): Minimal Duration of Surgery: Under 30 Minutes Postoperative Plan: Discharge to home
--- NOTE | 2023-11-07 09:06 | P.DS_ITS ---
DS: Providers Provider Date of Service: 11/07/23 Date of discharge: 11/07/23 Primary care physician: Missael Bear PA-C Admitting clinician: Mike Salazar DS: Diagnosis Discharge Diagnosis (1) Neuroforaminal stenosis of lumbar spine: Status: Acute DS: Summary Time Attestation Discharge coordination time: Less than 30 minutes Quality: Safe Use of Opioids Does Pt have an Active Cancer Diagnosis on the Problem List?: No Quality: Stroke Does the patient have a stroke diagnosis?: No Physical Exam Vital Signs: Vital Signs: Last Vital Signs Temp 97.8 F 11/07/23 06:29 Pulse 63 11/07/23 06:29 Resp 16 11/07/23 06:29 BP 129/91 H 11/07/23 06:29 Pulse Ox 98 11/07/23 06:29 O2 Del Method Room Air 11/07/23 06:29 BMI result Body Mass Index 34.6 Discharge Plan Discharge Patient Disposition: Home, Self-Care Referrals: Missael Bear PA-C [Primary Care Provider] - 1 Week Discharge Medications: New oxycodone 5 mg tablet 5 mg PO Q4H PRN (Reason: pain) Qty: 30 0RF Rx Instructions: Partial Fill upon patient request. docusate sodium [Colace] 100 mg capsule 100 mg PO BID Qty: 20 0RF Continued Balance Of Nature Supplement 1 cap PO DAILY simvastatin 20 mg tablet 20 mg PO DAILY 90 Days Qty: 90 1RF Discharge Orders: Discharge Order (Routine); Ordered 11/07/23 Ordered By: Harinder Yen Diet: Advance to usual diet Activity on Discharge: As tolerated Activity Restrictions/Additional Instructions: After your spinal surgery we ask you to observe the following restrict ions/guidelines: Activity: It is normal to feel some discomfort as you increase your activity, but that will improve with time. We ask you avoid heavy lifting or acitivities that cause pain. As a general rule, 8lbs is a safe limit for lifting right after surgery. Walk as much as you feel comfortable but not to exhaustion. You will feel extra tired the first few days after surgery. Stay well hydrated. It is OK to walk up and down stairs You may return to driving when you are off narcotics (such as vicodin, oxycodone, dilaudid, etc), and you are back to normal functional capacity. If you have any concerns please check with office before driving. Return to work is specific to each patient and each surgery, so please speak with your doctor/PA at first follow up. Please bring paperwork such as FMLA at that time if you need it filled out. Medications: For optimum pain control, it is best to start with a combination of 500 mg of Tylenol every 4 hours with 600 mg of Motrin every 8 hours, and use narcotics as needed in between for breakthrough pain. We will give you a short supply of narcotics after surgery (usually one weeks worth). If you need more please call the office but do not use more than prescribed. You will need to give our office 48 hours notice if you need narcotics refilled and we do not fill narcotics on weekends or evenings. If you are on a narcotic, it is a good idea to take a stool softener such as colace or senna to avoid constipation If you take blood thinner such as aspirin, Plavix, Coumadin, Effient, Eliquis etc for conditions such as Afib, DVT, Pulmonary embolus, coronary disease, stents etc please speak with your surgeon about specific details as to when you can resume these medications. You can resume NSAIDs on post op day 1 (eg: Motrin, Naproxen, etc). Follow up: Please call the office, , after surgery to arrange a 3 week follow up for wound check. Wound Care: You may remove your dressing on the first day after surgery. ?You may ?leave open to air. Please do not remove the steri strips underneath. they will fall off on their own in one week. IT IS NORMAL FOR THE WOUND TO OOZE OR BE BLOODY FOR A FEW DAYS AFTER SURGERY. ?IF THIS HAPPENS JUST PLACE NEW DRESSING OVER IT TO AVOID STAINING CLOTHES. You may shower on post op day # 1 We ask that you do not let the water soak the wound. If it does get wet, just towel dry lightly. Please do not scrub your incision or place any type of chemical/ointment on the wound. No tub baths, pools or jacuzzis for one month. If you have any leaking or redness from your wound, or fevers, please call office
--- NOTE | 2023-11-07 10:31 | P.DS_ITS ---
DS: Providers Provider Date of Service: 11/07/23 Primary care physician: Missael Bear PA-C DS: Diagnosis Discharge Diagnosis (1) Neuroforaminal stenosis of lumbar spine: Status: Acute DS: Summary Time Attestation Discharge coordination time: Less than 30 minutes Quality: Safe Use of Opioids Does Pt have an Active Cancer Diagnosis on the Problem List?: No Quality: Stroke Does the patient have a stroke diagnosis?: No Physical Exam Vital Signs: Vital Signs: Last Vital Signs Temp 98.1 F 11/07/23 10:20 Pulse 64 11/07/23 10:20 Resp 20 11/07/23 10:20 BP 126/55 L 11/07/23 10:20 Pulse Ox 96 11/07/23 10:20 O2 Del Method Room Air 11/07/23 10:20 BMI result Body Mass Index 34.6 Discharge Plan Discharge Patient Disposition: Home, Self-Care Referrals: Missael Bear PA-C [Primary Care Provider] - 1 Week Discharge Medications: New docusate sodium [Colace] 100 mg capsule 100 mg PO BID Qty: 20 0RF oxycodone 5 mg tablet 5 mg PO Q4H PRN (Reason: pain) Qty: 30 0RF Rx Instructions: Partial Fill upon patient request. docusate sodium [Colace] 100 mg capsule 100 mg PO BID Qty: 20 0RF Continued Balance Of Nature Supplement 1 cap PO DAILY simvastatin 20 mg tablet 20 mg PO DAILY 90 Days Qty: 90 1RF Discharge Orders: Discharge Order (Routine); Ordered 11/07/23 Ordered By: Harinder Yen Diet: Advance to usual diet Activity on Discharge: As tolerated Activity Restrictions/Additional Instructions: After your spinal surgery we ask you to observe the following restrictions/guid elines: Activity: It is normal to feel some discomfort as you increase your activity, but that will improve with time. We ask you avoid heavy lifting or acitivities that cause pain. As a general rule, 8lbs is a safe limit for lifting right after surgery. Walk as much as you feel comfortable but not to exhaustion. You will feel extra tired the first few days after surgery. Stay well hydrated. It is OK to walk up and down stairs You may return to driving when you are off narcotics (such as vicodin, oxycodone, dilaudid, etc), and you are back to normal functional capacity. If you have any concerns please check with office before driving. Return to work is specific to each patient and each surgery, so please speak with your doctor/PA at first follow up. Please bring paperwork such as FMLA at that time if you need it filled out. Medications: For optimum pain control, it is best to start with a combination of 500 mg of Tylenol every 4 hours with 600 mg of Motrin every 8 hours, and use narcotics as needed in between for breakthrough pain. We will give you a short supply of narcotics after surgery (usually one weeks worth). If you need more please call the office but do not use more than prescribed. You will need to give our office 48 hours notice if you need narcotics refilled and we do not fill narcotics on weekends or evenings. If you are on a narcotic, it is a good idea to take a stool softener such as colace or senna to avoid constipation If you take blood thinner such as aspirin, Plavix, Coumadin, Effient, Eliquis etc for conditions such as Afib, DVT, Pulmonary embolus, coronary disease, stents etc please speak with your surgeon about specific details as to when you can resume these medications. You can resume NSAIDs on post op day 1 (eg: Motrin, Naproxen, etc). Follow up: Please call the office, , after surgery to arrange a 3 week follow up for wound check. Wound Care: You may remove your dressing on the first day after surgery. ?You may ?leave open to air. Please do not remove the steri strips underneath. they will fall off on their own in one week. IT IS NORMAL FOR THE WOUND TO OOZE OR BE BLOODY FOR A FEW DAYS AFTER SURGERY. ?IF THIS HAPPENS JUST PLACE NEW DRESSING OVER IT TO AVOID STAINING CLOTHES. You may shower on post op day # 1 We ask that you do not let the water soak the wound. If it does get wet, just towel dry lightly. Please do not scrub your incision or place any type of chemical/ointment on the wound. No tub baths, pools or jacuzzis for one month. If you have any leaking or redness from your wound, or fevers, please call office
--- NOTE | 2023-11-07 11:07 | PC.NURSE ---
patient aware that prescriptions were filled at [facility] and that is why [facility] pharmacy was unable to fill them here. Patient will pick them up on way home. Patient aware of when tylenol and ibuprofen were given per dali from anesthesia documentation. This info. written on discharge instructions as well.
== END 2023-11-07 11:09 | disposition home or self-care (01) ==
PROVIDERS: PCP Physician Assistant; Visit Provider Neurological Surgery
PROC: (CPT 63047; principal; 2023-11-07 07:30)
DX: M48.061 Spinal stenosis, lumbar region without neurogenic claudication (principal); M54.32 Sciatica, left side; E78.00 Pure hypercholesterolemia, unspecified; Z79.899 Other long term (current) drug therapy
CPT/HCPCS: 63047; J0131; J0690; J1100; J1170; J1885; J2250; J2405; J2704; J3010

== ENCOUNTER → 2023-11-07 05:57 | Outpatient (BNV) | payer OTHER, SELFPAY | PROVIDERS: PCP Physician Assistant; Visit Provider Neurological Surgery | DX: M48.061 Spinal stenosis, lumbar region without neurogenic claudication (principal) | CPT/HCPCS: 63047; 99499 ==

== ENCOUNTER 2023-11-28 11:22 | Outpatient (AMB) | payer OTHER, SELFPAY ==
--- NOTE | 2023-11-28 11:24 | A.OFFVIS_ITS ---
Intake Intake Visit Reasons: 1st post-op visit Backup Engineer Required: No Allergies bee pollen [bee stings] Allergy (Severe, Verified 11/07/23 06:25) Swelling PFSH Medical History Loud snoring Arthritis Elevated cholesterol Surgical History History of carpal tunnel surgery of right wrist Social History Household Members: Significant Other Housing: House Are you a primary student career development specialist to a significant other at home: No Do you presently have visiting nurse or other home services: No 75 years or older and lives alone: No Alcohol intake: current Alcohol intake frequency: holidays/special occasions only Alcohol type: beer Patient Tobacco Use Status: Former Tobacco user Quit Date: 2006 Tobacco use type: Cigarette e-Cigarette/Vaping Use: Never Used Second Hand Smoke Exposure: Yes Substance Use Type: Marijuana service: No Current occupational status: employed 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 Cognitive needs: No Hearing needs: No Vision needs: No Assessment & Plan Assessment & Plan (1) S/P spinal surgery: Code(s): Z98.890 - Other specified postprocedural states Plan Procedure: Left L5 Laminotomy, Partial facetectomy Luke comes in today for his 1st postoperative visit. He reports he is very satisfied with the surgery and feels much better than he did preoperatively. The patient reports he is up walking around and completing the majority of his ADLs. He reports no pain in his low back or legs. He is able to sleep well and does not toss tax associate attorney longer at night. Overall he is doing very well. No neurological deficits. Patient is able to ambulate well, rises from a seated position without difficulty. Incision site is closed, well healing, with no signs of drainage. We will follow-up with the patient in 6 weeks for his 2nd postoperative visit. Mike Salazar MD,PhD [facility] Coding Level of Care Code Global (17014) Diagnoses S/P spinal surgery Z98.890
== END 2023-11-28 12:00 | disposition home or self-care (01) ==
PROVIDERS: PCP Physician Assistant; Visit Provider Physician Assistant
DX: Z98.890 Other specified postprocedural states (principal)
CPT/HCPCS: 99024

== ENCOUNTER → 2023-11-28 11:22 | Outpatient (BNVA) | payer OTHER, SELFPAY | PROVIDERS: PCP Physician Assistant; Visit Provider Physician Assistant | DX: Z47.89 Encounter for other orthopedic aftercare (principal); Z98.890 Other specified postprocedural states | CPT/HCPCS: 99212 ==

== ENCOUNTER 2023-12-03 07:37 | Outpatient (REF) | payer OTHER, SELFPAY ==
[2023-12-03 09:06] LABS: Alanine Aminotransferase 27 U/L (0-40); Alkaline Phosphatase 81 U/L (39-117); Anion Gap 13 (12-20); Aspartate Amino Transferase 18 U/L (5-37); Bilirubin Total 0.4 mg/dL (0.0-1.0); Blood Urea Nitrogen 15 mg/dL (9-16); Calcium 9.2 mg/dL (8.4-10.2); Carbon Dioxide 26 mmol/L (22-29); Chloride 107 mmol/L (96-108); Cholesterol 235 mg/dL (<200); Estimated Glomerular Filt Rate > 60; Glucose Fasting 101 mg/dL (60-99); HDL Cholesterol 43 mg/dL (>40); LDL Cholesterol Calculated 148 mg/dL (<100); Potassium 4.4 mmol/L (3.3-5.1); Sodium 142 mmol/L (135-145); Triglycerides 222 mg/dL (<150)
[2023-12-03 09:23] LABS: TSH reflex Free T4 1.77 uIU/mL (0.32-4.0)
== END 2023-12-03 07:38 | disposition home or self-care (01) ==
LOC: HO.LAB 07:37
PROVIDERS: PCP Physician Assistant; Visit Provider Physician Assistant
DX: E78.2 Mixed hyperlipidemia (principal)
CPT/HCPCS: 36415; 80053; 80061; 84443

== ENCOUNTER 2024-01-10 09:15 | Outpatient (AMB) | payer OTHER, SELFPAY ==
--- NOTE | 2024-01-10 09:21 | MHC.OFFVIS ---
Intake Intake Visit Reasons: 2nd post op Intake Note: Pt here for 2nd post op Credit Professional Required: No Allergies bee pollen [bee stings] Allergy (Severe, Verified 11/07/23 06:25) Swelling [facility] Medical History Loud snoring Arthritis Elevated cholesterol Surgical History History of carpal tunnel surgery of right wrist Social History Household Members: Significant Other Housing: House Are you a primary physician primary care sports medicine to a significant other at home: No Do you presently have visiting nurse or other home services: No 75 years or older and lives alone: No Alcohol intake: current Alcohol intake frequency: holidays/special occasions only Alcohol type: beer Patient Tobacco Use Status: Former Tobacco user Quit Date: 2006 Tobacco use type: Cigarette e-Cigarette/Vaping Use: Never Used Second Hand Smoke Exposure: Yes Substance Use Type: Marijuana service: No Current occupational status: employed 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 Cognitive needs: No Hearing needs: No Vision needs: No Assessment & Plan Assessment & Plan (1) Left knee pain: Code(s): M25.562 - Pain in left knee Plan Procedure: Left L5 Laminotomy, Partial facetectomy and foraminotomy Luke comes in today for his 2nd postoperative visit. He reports that he continues to do well and no longer has back pain/sciatic type pain. 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 He does intermittently feel some tenderness around his low back but feels as though it because he knows he had back surgery. We discussed his functionality, and he reported that his knee has been bothering him for the past few years and is worsening. 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 He is attempted to utilize knee pads and change the way that he sits/bends over, but still feels as though the area becomes swollen very easily and produces a significant amount of pain. He also endorses clicking/popping sensations in his knee when he engages the joint. No neurological deficits. Patient is able to ambulate well, rises from a seated position without difficulty. Posterior incision site is closed, well healing, with no signs of drainage. There is no need for routine follow-up with Luke any longer, he will be discharged as a patient. I will be providing him with a referral to orthopedics to evaluate his left knee. Mike Salazar MD,PhD [facility] Orders: Referrals Orthopedics Referral M25.562 - Pain in left knee Coding Level of Care Code Global (38695) Diagnoses Left knee pain M25.562
== END 2024-01-10 09:58 | disposition home or self-care (01) ==
PROVIDERS: PCP Physician Assistant; Visit Provider Physician Assistant
DX: M25.562 Pain in left knee (principal)
CPT/HCPCS: 99024

== ENCOUNTER → 2024-01-10 09:15 | Outpatient (BNVA) | payer OTHER, SELFPAY | PROVIDERS: PCP Physician Assistant; Visit Provider Physician Assistant | DX: Z48.89 Encounter for other specified surgical aftercare (principal); M25.562 Pain in left knee | CPT/HCPCS: 99212 ==

== ENCOUNTER 2024-01-29 08:25 | Outpatient (AMB) | payer OTHER, SELFPAY ==
--- NOTE | 2024-01-29 08:31 | MHC.OFFVIS ---
Intake Vital Signs 01/29/24 08:34 Height 5 ft 8 in Weight 225 lb BMI 34.2 Intake Visit Reasons: new prob- Pain in left knee Intake Note: Luke is a 44 year old male who presents with Left knee pain, clicking and popping. The patient states that he 1st injured his knee approximately 7 years ago. He twisted his knee and had acute onset of pain. Most of the pain is along the medial aspect of his knee. He has done physical therapy which aggravated his pain. He has also tried Tylenol and anti-inflammatory medicines which gave him minimal relief. States that his left knee will give out several times per day. Allergies bee pollen [bee stings] Allergy (Severe, Verified 01/29/24 08:41) Swelling Medication List - Last Reconciled 01/29/24 by Usama Ontiveros MD [Balance Of Nature Supplement 1 cap PO DAILY] docusate sodium (Colace) 100 mg PO BID docusate sodium (Colace) 100 mg PO BID oxycodone 5 mg PO Q4H PRN simvastatin 20 mg PO DAILY 90 days PFSH Medical History (Updated 01/29/24 @ 08:54 by Usama Ontiveros MD) Loud snoring Arthritis Elevated cholesterol Surgical History (Updated 01/29/24 @ 08:39 by Nichole Seth CMA) History of back surgery (11/07/23) History of carpal tunnel surgery of right wrist Social History Household Members: Significant Other Housing: House Are you a primary pet care associate to a significant other at home: No Do you presently have visiting nurse or other home services: No 75 years or older and lives alone: No Alcohol intake: current Alcohol intake frequency: holidays/special occasions only Alcohol type: beer Patient Tobacco Use Status: Former Tobacco user Quit Date: 2006 Tobacco use type: Cigarette e-Cigarette/Vaping Use: Never Used Second Hand Smoke Exposure: Yes Substance Use Type: Marijuana service: No Current occupational status: employed 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 Cognitive needs: No Hearing needs: No Vision needs: No Physical Exam Vital Signs: BMI result Body Mass Index 34.2 Const Other: Well-nourished well-developed very friendly male awake alert and oriented x3 in no acute distress Extrem Other: Bilateral lower extremity examination shows good capillary refill, no skin lesions noted, normal sensation light touch Left knee examination shows a minimal effusion, minimal crepitus with range of motion, positive Ebony's test, no instability Results Reviewed Results Reviewed: Standing full weight-bearing x-rays of the patient's left knee show minimal joint space narrowing, no acute bony abnormalities Assessment & Plan Assessment & Plan (1) Tear of medial meniscus of left knee: Code(s): S83.242A - Other tear of medial meniscus, current injury, left knee, initial encounter Plan Mr. Jefferson presents with progressively worsening left knee pain and mechanical symptoms most likely due to a tear of his medial meniscus. Thus, I will send him for an MRI of his left knee for further evaluation. The patient requests an open MRI. I have no problem with this. I will see him back once the MRI is completed to discuss the findings and treatment options. Feel free to call me at any time should questions regarding his orthopedic management arise. Thank you very much for asking me to see this very friendly gentleman. I spent 22 minutes in reviewing the patient's records and imaging studies, seeing the patient and documenting in the medical record. Orders: Orders XR knee LT 3V Today M25.562 - Pain in left knee MR knee LT wo con Today S83.242A - Other tear of medial meniscus, current injury, left knee, initial encounter Coding Level of Care Code New Pt Level 2 (68616) Diagnoses Tear of medial meniscus of left knee S83.242A
[2024-01-29 08:34] VITALS: BMI 34.2
== END 2024-01-29 08:50 | disposition home or self-care (01) ==
PROVIDERS: PCP Physician Assistant; Visit Provider Orthopaedic Surgery
DX: S83.242A Other tear of medial meniscus, current injury, left knee, initial encounter (principal)
CPT/HCPCS: 99202

== ENCOUNTER 2024-01-29 10:36 | Outpatient (REF) | payer OTHER, SELFPAY ==
--- NOTE | ~2024-01-29 | XR_ITS ---
EXAMINATION: XR KNEE, LEFT CLINICAL INFORMATION: Pain in the left knee. COMPARISON: None available. TECHNIQUE: Three views of the left knee. FINDINGS: No fracture or subluxation. Mild joint space narrowing of the medial and patellofemoral compartments. No chondrocalcinosis or osseous erosions. Small joint effusion. XR/XR knee LT 3V IMPRESSION: 1. No acute fracture or malalignment. 2. Mild degenerative osteoarthritis of the medial and patellofemoral compartments. 3. Small joint effusion.
== END 2024-01-29 10:37 | disposition home or self-care (01) ==
LOC: HO.HOSX 10:36
PROVIDERS: Visit Provider Orthopaedic Surgery
DX: S83.242A Other tear of medial meniscus, current injury, left knee, initial encounter (principal)
CPT/HCPCS: 73562; 99202

== ENCOUNTER 2024-02-11 07:57 | Outpatient (AMB) | payer OTHER, SELFPAY ==
[2024-02-11 07:59] VITALS: BMI 34.2
--- NOTE | 2024-02-11 07:59 | MHC.OFFVIS ---
Intake Vital Signs 02/11/24 07:59 Height 5 ft 8 in Weight 225 lb BMI 34.2 Intake Visit Reasons: Left knee pain Intake Note: Luke is a 44 year old male who presents for his MRI review of his left knee. The patient describes his left knee pain as sharp in nature. Most of the pain is along the medial and anterior aspects of his left knee. Denies any locking or giving way. His pain has gotten worse over the last few years in spite of continued non operative treatments. He does do quite a bit of kneeling and bending at his job. He has had cortisone injections in the past which gave him minimal relief. He has also tried Tylenol and anti-inflammatory medicines which gave him only mild relief. He wishes to hold off on surgery for as long as possible. Allergies bee pollen [bee stings] Allergy (Severe, Verified 02/11/24 08:01) Swelling Medication List - Last Reconciled 02/11/24 by Usama Ontiveros MD [Balance Of Nature Supplement 1 cap PO DAILY] docusate sodium (Colace) 100 mg PO BID docusate sodium (Colace) 100 mg PO BID oxycodone 5 mg PO Q4H PRN simvastatin 20 mg PO DAILY 90 days PFSH Medical History Loud snoring Arthritis Elevated cholesterol Surgical History History of back surgery (11/07/23) History of carpal tunnel surgery of right wrist Social History Household Members: Significant Other Housing: House Are you a primary home care manager to a significant other at home: No Do you presently have visiting nurse or other home services: No 75 years or older and lives alone: No Alcohol intake: current Alcohol intake frequency: holidays/special occasions only Alcohol type: beer Patient Tobacco Use Status: Former Tobacco user Quit Date: 2006 Tobacco use type: Cigarette e-Cigarette/Vaping Use: Never Used Second Hand Smoke Exposure: Yes Substance Use Type: Marijuana service: No Current occupational status: employed 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 Cognitive needs: No Hearing needs: No Vision needs: No Physical Exam Vital Signs: BMI result Body Mass Index 34.2 Const Other: Well-nourished well-developed very friendly male awake alert and oriented x3 in no acute distress Extrem Other: Bilateral lower extremity examination shows good capillary refill, no skin lesions noted, normal sensation light touch Left knee examination shows a mild effusion, palpable crepitus with range of motion, tenderness along his medial joint line, negative Ebony's test, no instability Results Reviewed Results Reviewed: MRI of the patient's left knee shows mild to moderate degenerative changes most significant in the medial compartment and patellofemoral joint, no evidence of ligamentous or meniscus injury Assessment & Plan Assessment & Plan (1) Left knee pain: Code(s): M25.562 - Pain in left knee Plan Mr. Jefferson presents with left knee pain due to early degenerative joint disease. I had a lengthy discussion with the patient regarding the treatment options. He wishes to hold off on surgery for as long as possible. I agree with this plan. The patient has not gotten good relief from cortisone injections in the past. Thus, I will see whether or not his insurance company will cover a viscosupplementation injection for his left knee. I will see him back once the injection is available. Feel free to call me at any time should questions regarding his orthopedic management arise. I spent 22 minutes in reviewing the patient's records and imaging studies, seeing the patient and documenting in the medical record. Coding Level of Care Code Est Pt Level 2 (34455) Diagnoses Left knee pain M25.562
== END 2024-02-11 08:18 | disposition home or self-care (01) ==
PROVIDERS: PCP Physician Assistant; Visit Provider Orthopaedic Surgery
DX: M17.12 Unilateral primary osteoarthritis, left knee (principal)
CPT/HCPCS: 99213

== ENCOUNTER → 2024-02-11 07:57 | Outpatient (BNVA) | payer OTHER, SELFPAY | PROVIDERS: PCP Physician Assistant; Visit Provider Orthopaedic Surgery | DX: M25.562 Pain in left knee (principal) | CPT/HCPCS: 99212 ==

== ENCOUNTER 2024-04-22 14:25 | Outpatient (AMB) | payer OTHER, SELFPAY ==
[2024-04-22 14:39] VITALS: BMI 34.2
--- NOTE | 2024-04-22 14:39 | A.OFFVIS_ITS ---
Vital Signs 04/22/24 14:39 Height 5 ft 8 in Weight 225 lb BMI 34.2 Intake Visit Reasons: OV - #1 Euflexxa gel LEft knee Intake Note: Luke is a 44 year old male who presents with complaints of progressively worsening left knee pain. His pain has gotten worse over the last year in spite of continued non operative treatments. He has done physical therapy which aggravated his pain. He has also tried Tylenol and anti-inflammatory medicines which gave him minimal relief. He has had cortisone injections which gave him no relief. He wishes to hold off on surgery for as long as possible. Allergies bee pollen [bee stings] Allergy (Severe, Verified 04/22/24 14:39) Swelling Medication List - Last Reconciled 04/22/24 by Usama Ontiveros MD [Balance Of Nature Supplement 1 cap PO DAILY] docusate sodium (Colace) 100 mg PO BID docusate sodium (Colace) 100 mg PO BID oxycodone 5 mg PO Q4H PRN simvastatin 20 mg PO DAILY 90 days PFSH Medical History Loud snoring Arthritis Elevated cholesterol Surgical History History of back surgery (11/07/23) History of carpal tunnel surgery of right wrist Social History Household Members: Significant Other Housing: House Are you a primary child care teacher to a significant other at home: No Do you presently have visiting nurse or other home services: No 75 years or older and lives alone: No Alcohol intake: current Alcohol intake frequency: holidays/special occasions only Alcohol type: beer Patient Tobacco Use Status: Former Tobacco user Quit Date: 2006 Tobacco use type: Cigarette e-Cigarette/Vaping Use: Never Used Second Hand Smoke Exposure: Yes Substance Use Type: Marijuana service: No Current occupational status: employed 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 Cognitive needs: No Hearing needs: No Vision needs: No Physical Exam Vital Signs: BMI result Body Mass Index 34.2 Const Other: Well-nourished well-developed very friendly male awake alert and oriented x3 in no acute distress Extrem Other: Bilateral lower extremity examination shows good capillary refill, no skin lesions noted, normal sensation light touch Left knee examination shows a minimal effusion, palpable crepitus with range of motion, pain with range of motion, no instability Office Procedures Joint Injection/Drain Joint Injection/Drain Primary Site: left knee Injected: 20 mg of (Euflexxa viscosupplementation) and 1% plain lidocaine Procedure: The patient tolerated the procedure well Coding - Large joint Procedure code (CPT) selection complete Results Reviewed Results Reviewed: X-rays of the patient's left knee show joint space narrowing, subchondral sclerosis, no acute bony abnormalities Assessment & Plan Assessment & Plan (1) Arthritis of left knee: Code(s): M17.12 - Unilateral primary osteoarthritis, left knee Category: Medical Plan Mr. Jefferson presents with left knee pain due to degenerative joint disease. I had a lengthy discussion with the patient regarding the treatment options. He wishes to hold off on surgery for as long as possible. I agree with this plan. He has not gotten good relief from cortisone injections in the past. Thus, the risks and benefits of a series of Euflexxa injections were discussed at length with the patient. The patient wished to proceed. He tolerated the 1st Euflexxa injection well. He will continue with his activity modifications. He will follow up next week as scheduled. Feel free to call me at any time should questions regarding his orthopedic management arise. I spent 20 minutes in reviewing the patient's records and imaging studies, seeing the patient and documenting in the medical record. Orders: Orders AMB Joint Injection/Aspiration Today M17.12 - Unilateral primary osteoarthritis, left knee Coding Level of Care Code Est Pt Level 3 (38900) Diagnoses Arthritis of left knee M17.12 CPT Codes Coding - Large joint: 12493 - Large joint ([id number])
== END 2024-04-22 15:02 | disposition home or self-care (01) ==
LOC: HO.HOS 14:27
PROVIDERS: PCP Physician Assistant; Visit Provider Orthopaedic Surgery
DX: M17.12 Unilateral primary osteoarthritis, left knee (principal)
CPT/HCPCS: 20610; 99213

== ENCOUNTER → 2024-04-22 14:27 | Outpatient (BNVA) | payer OTHER, SELFPAY | PROVIDERS: PCP Physician Assistant; Visit Provider Orthopaedic Surgery | DX: M17.12 Unilateral primary osteoarthritis, left knee (principal); Z79.899 Other long term (current) drug therapy | CPT/HCPCS: 20610; 99212 ==

== ENCOUNTER 2024-04-29 14:31 | Outpatient (AMB) | payer OTHER, SELFPAY ==
--- NOTE | 2024-04-29 14:34 | A.OFFVIS_ITS ---
Vital Signs 04/29/24 14:35 Height 5 ft 8 in Weight 225 lb BMI 34.2 Intake Visit Reasons: OV- #2 Euflexxa gel Left knee Intake Note: Luke is a 44 year old male who presents for his #2 Left knee Euflexxa gel injection. The patient states that he got mild relief from the 1st injection. He denies any fevers or chills. Allergies bee pollen [bee stings] Allergy (Severe, Verified 04/29/24 14:51) Swelling Medication List - Last Reconciled 04/30/24 by Usama Ontiveros MD [Balance Of Nature Supplement 1 cap PO DAILY] docusate sodium (Colace) 100 mg PO BID docusate sodium (Colace) 100 mg PO BID oxycodone 5 mg PO Q4H PRN simvastatin 20 mg PO DAILY 90 days PFSH Medical History Loud snoring Arthritis Elevated cholesterol Surgical History History of back surgery (11/07/23) History of carpal tunnel surgery of right wrist Social History Household Members: Significant Other Housing: House Are you a primary hearing healthcare practitioner to a significant other at home: No Do you presently have visiting nurse or other home services: No 75 years or older and lives alone: No Alcohol intake: current Alcohol intake frequency: holidays/special occasions only Alcohol type: beer Patient Tobacco Use Status: Former Tobacco user Quit Date: 2006 Tobacco use type: Cigarette e-Cigarette/Vaping Use: Never Used Second Hand Smoke Exposure: Yes Substance Use Type: Marijuana service: No Current occupational status: employed 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 Cognitive needs: No Hearing needs: No Vision needs: No Physical Exam Vital Signs: BMI result Body Mass Index 34.2 Extrem Other: Left lower extremity examination shows that his left knee has a minimal effusion, palpable crepitus with range of motion, pain with range of motion, no instability Office Procedures Joint Injection/Drain Joint Injection/Drain Primary Site: left knee Prep: site was prepped using aseptic technique Injected: 20 mg of (Euflexxa viscosupplementation) and 1% plain lidocaine Procedure: The patient tolerated the procedure well Coding 82603 - Large joint Procedure code (CPT) selection complete Results Reviewed Results Reviewed: X-rays of the patient's left knee show joint space narrowing, subchondral sclerosis, no acute bony abnormalities Assessment & Plan Assessment & Plan (1) Arthritis of left knee: Code(s): M17.12 - Unilateral primary osteoarthritis, left knee Category: Medical Plan Mr. Jefferson presents with left knee pain due to degenerative joint disease. The risks and benefits of his 2nd Euflexxa injection were discussed at length with the patient. The patient wished to proceed. He tolerated the injection well. He will continue with his activity modifications. He will follow up next week as scheduled. Feel free to call me at any time should questions regarding his orthopedic management arise. I spent 21 minutes in reviewing the patient's records and imaging studies, seeing the patient and documenting in the medical record. Orders: Orders AMB Joint Injection/Aspiration 04/29/24 M17.12 - Unilateral primary osteoarthritis, left knee Coding Level of Care Code Procedure Only Diagnoses Arthritis of left knee M17.12 CPT Codes Coding - 67657 Large joint: 59244 - Large joint ([id number])
[2024-04-29 14:35] VITALS: BMI 34.2
== END 2024-04-29 16:07 | disposition home or self-care (01) ==
PROVIDERS: PCP Physician Assistant; Visit Provider Orthopaedic Surgery
DX: M17.12 Unilateral primary osteoarthritis, left knee (principal)
CPT/HCPCS: 20610

== ENCOUNTER → 2024-04-29 14:31 | Outpatient (BNVA) | payer OTHER, SELFPAY | PROVIDERS: PCP Physician Assistant; Visit Provider Orthopaedic Surgery | DX: M17.12 Unilateral primary osteoarthritis, left knee (principal) | CPT/HCPCS: 20610; J7323 ==

== ENCOUNTER 2024-05-06 14:29 | Outpatient (AMB) | payer OTHER, SELFPAY ==
--- NOTE | 2024-05-06 14:41 | A.OFFVIS_ITS ---
Intake Visit Reasons: OV- #3 Euflexxa gel Left knee Intake Note: Luke is a 44 year old male who presents for his #3 Left knee Euflexxa gel injection. The patient states that he got mild relief from the 1st 2 injections. Denies any fevers or chills. Allergies bee pollen [bee stings] Allergy (Severe, Verified 04/29/24 14:51) Swelling Medication List - Last Reconciled 05/06/24 by Usama Ontiveros MD [Balance Of Nature Supplement 1 cap PO DAILY] docusate sodium (Colace) 100 mg PO BID docusate sodium (Colace) 100 mg PO BID oxycodone 5 mg PO Q4H PRN simvastatin 20 mg PO DAILY 90 days PFSH Medical History Loud snoring Arthritis Elevated cholesterol Surgical History History of back surgery (11/07/23) History of carpal tunnel surgery of right wrist Social History Household Members: Significant Other Housing: House Are you a primary healthcare business analyst to a significant other at home: No Do you presently have visiting nurse or other home services: No 75 years or older and lives alone: No Alcohol intake: current Alcohol intake frequency: holidays/special occasions only Alcohol type: beer Patient Tobacco Use Status: Former Tobacco user Tobacco use type: Cigarette e-Cigarette/Vaping Use: Never Used Second Hand Smoke Exposure: Yes Substance Use Type: Marijuana service: No Current occupational status: employed 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 Cognitive needs: No Hearing needs: No Vision needs: No Physical Exam Const Other: Well-nourished well-developed very friendly male awake alert and oriented x3 in no acute distress Extrem Other: Bilateral lower extremity examination shows good capillary refill, no skin lesions noted, normal sensation light touch Left knee examination shows a minimal effusion, palpable crepitus with range of motion, pain with range of motion, no instability Assessment & Plan Assessment & Plan (1) Arthritis of left knee: Code(s): M17.12 - Unilateral primary osteoarthritis, left knee Category: Medical Plan Mr. Jefferson presents with left knee pain due to degenerative joint disease. I had a lengthy discussion with the patient regarding the treatment options. The risks and benefits of the 3rd Euflexxa injection were discussed at length with the patient. The patient wished to proceed. He tolerated the injection well. Will continue with his activities as tolerated. Follow up with me on an as- needed basis should his symptoms not plateau at an unacceptable level over the next few months. Feel free to call me at any time should questions regarding his orthopedic management arise. Orders: Orders AMB Joint Injection/Aspiration Today M17.12 - Unilateral primary osteoarthritis, left knee Coding Level of Care Code Procedure Only Diagnoses Arthritis of left knee M17.12
== END 2024-05-06 15:15 | disposition home or self-care (01) ==
LOC: HO.HOS 14:29
PROVIDERS: PCP Physician Assistant; Visit Provider Orthopaedic Surgery
DX: M17.12 Unilateral primary osteoarthritis, left knee (principal)
CPT/HCPCS: 20610

== ENCOUNTER → 2024-05-06 14:29 | Outpatient (BNVA) | payer OTHER, SELFPAY | PROVIDERS: PCP Physician Assistant; Visit Provider Orthopaedic Surgery | DX: M17.12 Unilateral primary osteoarthritis, left knee (principal) | CPT/HCPCS: 20610; J7323 ==

== ENCOUNTER 2024-05-07 08:03 | Outpatient (AMB) | payer OTHER, SELFPAY ==
[2024-05-07 08:12] VITALS: BP 142/84; PULSE 78; O2SAT 97; BMI 36.5
--- NOTE | 2024-05-07 08:12 | MHC.PC.OV ---
Vital Signs 05/07/24 08:12 Height 5 ft 8 in Weight 240 lb 2 oz BMI 36.5 BP 142/84 H Blood Pressure Location Lt brachial Position Sitting Pulse 78 Pulse Source Pulse Oximeter Pulse Oximetry (%) 97 Oxygen Delivery Method Room Air Intake Visit Reasons: PE Counter Supervisor Required: No Accompanied by: Self / Same As Patient Allergies bee pollen [bee stings] Allergy (Severe, Verified 05/07/24 08:24) Swelling Medication List - Last Reconciled 05/07/24 by Missael Bear PA-C [Balance Of Nature Supplement 1 cap PO DAILY] docusate sodium (Colace) 100 mg PO BID docusate sodium (Colace) 100 mg PO BID oxycodone 5 mg PO Q4H PRN simvastatin 20 mg PO DAILY 90 days Tobacco use date assessed: 05/07/24 Dental Screening Dental Screen Date: 05/07/24 Did you have a dental visit in the last 12 months?: Yes Did you have a dental problem in the last 6 months where you did not have access to dental care?: No Was dental information given to patient?: Patient has dentist HPI PE HPI Details Patient is a 44-year-old male here today for routine annual physical.? Patient has a past medical history significant for hyperlipidemia, elevated blood pressure readings, obesity, lumbar disc disease -Concern---> reports having some erectile issues as of late. He reports some premature ejaculation. He has been the same and for 15 years and reports his sex life has slowed down which he attributes to his symptoms. --noted elevated blood pressure readings on several occasions at office visits. . Osteoarthritis Knee: Seeing orthopedic and geting gel injection. He reports the food to injections were helpful though his last injection caused him some pain and discomfort in his knee Lumbar disc disease: The for back has been better since getting pain reduction modalities with pain management. .. Hyperlipidemia:? Has been out of simvastatin for quite awhile?. Has been able to lose weight since last office visit.? Has been reducing his high cholesterol foods in his diet. .. Obesity:? Unfortunately did not lose any weight since last office visit. BMI remains at 36.5. He does report being physically active headaches job. He admits to adapting to better eating habits though does eat a lot of ice cream. .. Elevated fasting blood sugar: Noted elevated fasting blood sugar most recent labs. Will continue to follow fasting blood sugar and A1c. Vaccines: Up-to-date with COVID vaccine and tetanus vaccine, Declines flu vaccine. Laboratory Tests 11/05/22 05/08/23 12/03/23 07:23 07:02 07:58 Fasting Glucose 107 H Hemoglobin A1c % 5.2 Triglycerides 150 222 H Cholesterol 217 233 235 H LDL Cholesterol, C alc 142 160 148 H TSH 1.77 [facility] Medical History Loud snoring Arthritis Elevated cholesterol Surgical History History of back surgery (11/07/23) History of carpal tunnel surgery of right wrist Family History (Updated 05/07/24 @ 08:28 by Missael Bear PA-C) Mother HIV disease Social History (Updated 05/07/24 @ 08:30 by Missael Bear PA-C) Household Members: Significant Other Housing: House Are you a primary progressive care manager to a significant other at home: No Do you presently have visiting nurse or other home services: No 75 years or older and lives alone: No Alcohol intake: current Alcohol intake frequency: holidays/special occasions only Alcohol type: beer Patient Tobacco Use Status: Former Tobacco user Tobacco use type: Cigarette e-Cigarette/Vaping Use: Never Used Second Hand Smoke Exposure: Yes Substance Use Type: Marijuana service: No Current occupational status: employed 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 Cognitive needs: No Hearing needs: No Vision needs: No Questionnaire PHQ-9 Over the last 2 weeks, how often have you been bothered by any of the following problems? 1. Little interest or pleasure in doing things: not at all 2. Feeling down, depressed, or hopeless: not at all 3. Trouble falling or staying asleep, or sleeping too much: not at all 4. Feeling tired or having little energy: not at all 5. Poor appetite or overeating: not at all 6. Feeling bad about yourself - or that you are a failure or have let yourself or your family down: not at all 7. Trouble concentrating on things, such as reading the newspaper or watching television: not at all 8. Moving or speaking so slowly that other people could have noticed. Or the opposite - being so fidgety or restless that you have been moving around a lot more than usual: not at all 9. Thoughts that you would be better off or of hurting yourself in some way: not at all Total score: 0 Depression Screening Interpretation: Negative Depression Screening Done: Yes [id number] - PHQ-9 Billing: Yes Source: Developed by Drs. Linden Villagomez, Harmony Henry, Frederic Gutierrez and colleagues, with an educational kelsie from [employer]. Thrive Questionnaire Date Thrive assessed: 05/07/24 I am a: Patient What is your living situation today?: I have a steady place to live Within the past 12 months, did the food you bought not last and you didn't have the money to get more?: Never true Within the past 12 months, did you worry whether your food would run out before you got money to buy more?: Never true Do you have trouble paying for medicines?: No Do you have trouble getting transportation to medical appointments?: No Do you have trouble paying your heating and electricity bill?: No Do you have trouble taking care of your child, family member or friend?: No Do you have trouble with day-to-day activities such as bathing, preparing meals, shopping, managing finances, etc.?: No Are you currently unemployed and looking for a job?: No Are you interested in more education?: No Currently or been in a relationship where the following occur: no concerns reported THRIVE Score: 0 AUDIT C Alcohol Use Questionnaire (AUDIT-C) 1. How often do you have a drink containing alcohol?: Monthly or less 2. How many drinks containing alcohol do you have on a typical day when you are drinking?: 1 or 2 3. How often do you have six or more drinks on one occasion?: Never Total Score: 1 ZHENG-7 AMB Questionnaire ZHENG-7 Date ZHENG - 7 assessed: 05/07/24 Feeling nervous, anxious, or on edge: 0 = Not at all Not being able to stop or control worryin = Not at all Worrying too much about different things: 0 = Not at all Trouble relaxin = Not at all Being so restless that it is hard to sit still: 0 = Not at all Becoming easily annoyed or irritable: 0 = Not at all Feeling afraid as if something awful might happen: 0 = Not at all Total ZHENG-7 score (0-4 normal; 5-9 mild; 10-14 moderate; 15-21 severe): 0 Source: Developed by Drs. Linden Villagomez, Harmony Henry, Frederic Gutierrez and colleagues, with an educational kelsie from [employer]. ZHENG-7 Assessment Billing ZHENG-7 Assessment Tool: ZHENG-7 Assessment 53428 Review of Systems Const Denies body aches, Denies chills, Denies excessive sweating, Denies fatigue, Denies fever(s) and Denies headache(s) Eyes Denies blurry vision ENT Denies dysphagia, Denies vertigo, Denies dizziness, Denies headache(s), Denies hearing loss and Denies tinnitus Card Denies chest pain, Denies chest pain with activity, Denies syncope, Denies irregular heart rhythm and Denies dyspnea Resp Denies chest congestion, Denies cough, Denies hemoptysis, Denies dyspnea and Denies wheezing GI Denies abdominal pain, Denies melena, Denies hematochezia, Denies coffee ground emesis, Denies dysphagia, Denies diarrhea, Denies nausea and Denies vomiting Denies difficulty urinating, Denies dysuria, Denies urinary frequency, Denies urinary hesitancy and Denies urinary urgency Musc Denies arthralgias, Denies limited range of motion, Denies muscle cramps and Denies muscle weakness Skin/Breast Denies rash and Denies skin ulcer Neuro Denies Abnormal speech present, Denies confusion, Denies vertigo, Denies dizziness, Denies syncope, Denies headache(s), Denies memory loss and Denies seizure-like activity Psych Denies anxiety, Denies confusion, Denies depression, Denies memory loss, Denies panic attacks and Denies paranoia Endo Denies excessive sweating, Denies fatigue, Denies flushing, Denies polydipsia and Denies polyuria Aller/Immun Denies wheezing Physical exam (Primary Care) Vital Signs: Last Vital Signs Pulse 78 05/07/24 08:12 BP 142/84 H 05/07/24 08:12 Pulse Ox 97 05/07/24 08:12 Oxygen Delivery Method Room Air 05/07/24 08:12 BMI result Body Mass Index 36.5 Tobacco/Smoking Status: Tobacco use Status Tobacco use date assessed 05/07/24 05/07/24 08:23 Patient Tobacco Use Status Former Tobacco user 05/07/24 08:23 Tobacco use type Cigarette 05/07/24 08:23 e-Cigarette/Vaping Use Never Used 05/07/24 08:23 PHQ-9: PHQ-9 Score PHQ-9: Total score 0 05/07/24 08:23 Depression Screening Interpretation: Negative Thrive Assessment: Date of Thrive Assessment Date Thrive assessed 05/07/24 05/07/24 08:23 Currently or been in a relationship where the following occur: no concerns reported Const General: cooperative, comfortable, no acute distress, alert and awake; No confusion Orientation/consciousness: oriented to person, oriented to place, patient oriented x3 and No confusion HENMT Head: Yes normocephalic Ears: external ears normal and TM's normal bilaterally Face and sinus: No sinus tenderness Mouth: Normal oral and palatal mucosa present and tongue normal Teeth and gingiva: dentition normal and gingiva normal Throat: Yes posterior oropharynx normal, Yes tonsils normal and Yes uvula midline Eyes Conjunctivae: conjunctivae normal Sclerae: sclerae normal Pupils: Equal, round and reactive pupils present EOM: EOMs intact bilaterally Direct Ophthalmoscopy: No no photophobia Neck Neck: Yes no lymphadenopathy, No tender and Yes no JVD Thyroid: Thyroid normal Carotids: no bruits Chest Chest palpation & inspection: no tenderness Resp Effort & Inspection: normal respiratory effort, no audible wheezes, not labored and no stridor Auscultation: no crackles, no rales, no rhonchi and no wheezes Cardio Jugular venous distension: no JVD Rate: regular rate, not bradycardic and not tachycardic Rhythm: regular rhythm Bruits: no carotid bruits Peripheral pulses: Peripheral pulses 2+ throughout GI Inspection: Yes normal to inspection, No abdominal wall ecchymosis and No visible herniation Palpation (GI): Soft to palpation, nontender, no guarding, not rigid and No hepatosplenomegaly present Auscultation: normoactive bowel sounds General: Yes no CVA tenderness Back/Spine/Pelvis Back: no CVA tenderness and No back tenderness Cervical Spine: cervical ROM normal Thoracic/Lumbar Spine: thoracic and lumbar spine normal to inspection, straight leg raise negative bilaterally, No thoraco-lumbar ROM limited and No lumbar spinal tenderness Skin Lesions: no lesions Rashes: no rashes Wounds: no wounds Neuro General: oriented to person, oriented to place, patient oriented x3, CN's II-XI intact bilaterally and No confusion Cranial nerves: Yes Equal, round and reactive pupils present and Yes Normal accommodation reflex present Cognition (Neuro): normal cognition Speech: No Abnormal speech present Gait exam (Neuro): Normal gait present Motor exam (neuro): 5/5 motor strength present throughout Extrem Right upper extremity: full ROM; no cyanosis Left upper extremity: full ROM; no cyanosis Right lower extremity: no edema Left lower extremity: no edema Psych Appearance: grossly normal Mental Status: mental status grossly normal Affect: normal affect Attitude: cooperative Thought process: Normal thought process present Assessment and Plan Assessment & Plan (1) Annual physical exam: Code(s): Z00.00 - Encounter for general adult medical examination without abnormal findings (2) Obese: Code(s): E66.9 - Obesity, unspecified Qualifiers: Obesity type: due to excess calories Obesity classification: adult class 1 (BMI 30 - 34.9) Serious obesity comorbidity presence: without serious comorbidity Body mass index: BMI 34.0-34.9 Qualified Code(s): E66.09 - Other obesity due to excess calories; Z68.34 - Body mass index [BMI] 34.0-34.9, adult Plan: Week a noted since last office visit. Does recently return back to work and intense to reduce his weight. (3) Lumbar spine pain: Code(s): M54.50 - Low back pain, unspecified Plan: Patient followed by forestry biology specialist, physical therapy has been done in the past though felt it made his back pain worse. He is now seeing a neurosurgeon to and will be scheduled for surgery in November to fix his lumbar disc. He anticipates better pain relief with surgery. He reports his back pain is worse after her 8-10 hour work shifts. 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 (4) Elevated fasting blood sugar: Code(s): R73.01 - Impaired fasting glucose Plan: Patient has a elevated fasting blood sugar most recent labs. Will continue to work on weight reduction and low-carbohydrate diet. (5) Hyperlipidemia: Code(s): E78.5 - Hyperlipidemia, unspecified Qualifiers: Hyperlipidemia type: mixed hyperlipidemia Qualified Code(s): E78.2 - Mixed hyperlipidemia Plan: Patient has been out of simvastatin 20 mg for quite some time. He is willing to restart since statin therapy. Most recent lipid panel showing elevated total cholesterol and LDL. Advised on fasting labs done to evaluate for approved total cholesterol and LDL. Will LDL to be below 160 (6) Erectile dysfunction: Code(s): N52.9 - Male erectile dysfunction, unspecified Qualifiers: Erectile dysfunction type: due to other cause Qualified Code(s): N52.8 - Other male erectile dysfunction Plan: As per HPI patient has been having difficulty with erections and premature ejaculation. Will like to try Cialis before sexual activity to see if symptoms get better. (7) Elevated blood pressure reading in office without diagnosis of hypertension: Code(s): R03.0 - Elevated blood-pressure reading, without diagnosis of hypertension Plan: Noted elevated blood pressure readings over the past few months at office visits. Did discuss the possibility of starting low-dose blood pressure medication though patient declines and would like to work on lifestyle and dietary modifications to reduce his blood pressure. Does have a home blood pressure cuff and will start to monitor blood pressure with goal to be below 140/90 Orders: Orders Lipid Panel Today E78.2 - Mixed hyperlipidemia Complete Blood Count no Diff Today R03.0 - Elevated blood-pressure reading, without diagnosis of hypertension Hemoglobin A1c Today R03.0 - Elevated blood-pressure reading, without diagnosis of hypertension Comprehensive [place]. Panel Fast Today R03.0 - Elevated blood-pressure reading, without diagnosis of hypertension Medications: New tadalafil (Cialis) administer approximately 30min before sexual activity; do not use more than 1 dose per 24hrs 20 mg PO DAILY 5 days PRN 5 tabs 0RF sexual activity N52.8 - Other male erectile dysfunction Refilled simvastatin 20 mg PO DAILY 90 days 90 tabs 1RF E78.5 - Hyperlipidemia, unspecified Discontinued docusate sodium (Colace) Discontinued Reason: Doctor's Order 100 mg PO BID 20 caps 0RF docusate sodium (Colace) Discontinued Reason: Doctor's Order 100 mg PO BID 20 caps 0RF Coding Level of Care Code Est Pt Prev Care 40-64y(96710) Diagnoses Annual physical exam Z00.00 Class 1 obesity due to excess calories without serious comorbidity with body mass index (BMI) of 34.0 to 34.9 in adult E66.09; Z68.34 Obesity type: due to excess calories Obesity classification: adult class 1 (BMI 30 - 34.9) Serious obesity comorbidity presence: without serious comorbidity Body mass index: BMI 34.0-34.9 Lumbar spine pain M54.50 Elevated fasting blood sugar R73.01 Mixed hyperlipidemia E78.2 Hyperlipidemia type: mixed hyperlipidemia Other male erectile dysfunction N52.8 Erectile dysfunction type: due to other cause Elevated blood pressure reading in office without diagnosis of hypertension R03.0 Additional Codes ZHENG-7 Assessment Billing - ZHENG-7 Assessment Tool: ZHENG-7 Assessment [id number] ([id number])
== END 2024-05-07 08:52 | disposition home or self-care (01) ==
PROVIDERS: PCP Physician Assistant; Visit Provider Physician Assistant
DX: Z00.00 Encounter for general adult medical examination without abnormal findings (principal); E66.09 Other obesity due to excess calories; Z68.34 Body mass index [BMI] 34.0-34.9, adult; M54.50 Low back pain, unspecified; R73.01 Impaired fasting glucose; E78.2 Mixed hyperlipidemia; N52.8 Other male erectile dysfunction; R03.0 Elevated blood-pressure reading, without diagnosis of hypertension
CPT/HCPCS: 99396

== ENCOUNTER 2024-09-14 07:11 | Outpatient (REF) | payer OTHER, SELFPAY ==
[2024-09-14 07:54] LABS: Hematocrit 45.3 % (42.0-52.0); Hemoglobin 15.6 g/dl (14.0-18.0); Mean Corpuscular HGB Conc 34.4 g/dl (31.0-36.0); Mean Corpuscular Hemoglobin 30.9 pg (27.0-33.0); Mean Corpuscular Volume 89.7 fL (80.0-98.0); Platelet Count 270 X10*3/uL (160-400); Red Blood Count 5.05 X10*6/uL (4.60-5.80); Red Cell Distribution Width 12.4 % (11.0-16.0); White Blood Count 9.1 X10*3/uL (4.8-10.8)
[2024-09-14 08:06] LABS: Estimated Average Glucose 114 mg/dL; Hemoglobin A1C 137.8401 umol/L; Hemoglobin A1c % 5.6 % (<6.0); Total Hemoglobin (HGBA1C) 3642.4841 umol/L
[2024-09-14 08:18] LABS: Alanine Aminotransferase 38 U/L (0-40); Albumin Level 3.9 g/dL (3.5-5.0); Alkaline Phosphatase 71 U/L (39-117); Anion Gap 10 (12-20); Aspartate Amino Transferase 21 U/L (5-37); Bilirubin Total 0.3 mg/dL (0.0-1.0); Blood Urea Nitrogen 14 mg/dL (9-16); Calcium 9.2 mg/dL (8.4-10.2); Carbon Dioxide 26 mmol/L (22-29); Chloride 107 mmol/L (96-108); Cholesterol 195 mg/dL (<200); Estimated Glomerular Filt Rate > 60; Glucose Fasting 118 mg/dL (60-99); HDL Cholesterol 45 mg/dL (>40); LDL Cholesterol Calculated 111 mg/dL (<100); Potassium 4.2 mmol/L (3.3-5.1); Sodium 139 mmol/L (135-145); Total Protein 6.7 g/dL (6.5-8.0); Triglycerides 197 mg/dL (<150)
== END 2024-09-14 07:12 | disposition home or self-care (01) ==
LOC: HO.LAB 07:11
PROVIDERS: PCP Physician Assistant; Visit Provider Physician Assistant
DX: E78.2 Mixed hyperlipidemia (principal); R03.0 Elevated blood-pressure reading, without diagnosis of hypertension
CPT/HCPCS: 36415; 80053; 80061; 83036; 85027

== ENCOUNTER 2024-09-16 07:58 | Outpatient (AMB) | payer OTHER, SELFPAY ==
[2024-09-16 08:09] VITALS: BP 124/72; BMI 36.2
--- NOTE | 2024-09-16 08:09 | A.OFFPC_ITS ---
Vital Signs 09/16/24 08:09 Height 5 ft 8 in Weight 238 lb BMI 36.2 BP 124/72 Blood Pressure Location Lt brachial Position Sitting Intake Visit Reasons: f/u HLD/ blood pressure Telesales Advisor Required: No Accompanied by: Self / Same As Patient Allergies bee pollen [bee stings] Allergy (Severe, Verified 09/16/24 08:15) Swelling Medication List - Last Reconciled 09/16/24 by Missael Bear PA-C simvastatin 20 mg PO DAILY 90 days Tobacco use date assessed: 05/07/24 Dental Screening Dental Screen Date: 09/16/24 Did you have a dental visit in the last 12 months?: Yes Did you have a dental problem in the last 6 months where you did not have access to dental care?: No Was dental information given to patient?: Patient has dentist HPI f/u HLD/ blood pressure HPI Details Patient is a 44-year-old male here today for a follow-up visit? Patient has a past medical history significant for hyperlipidemia, elevated blood pressure readings, obesity, lumbar disc disease -Concern---> patient concerned about his weight, his weight continues to be in the 230s. He reports he has drastically reduced his soda intake though does admit to having excessive amount of carbohydrates in his diet. He also reports his significant other reports he is doing some loud snoring and have an apneic episodes. He is interested in home sleep study to evaluate for obstructive sleep apnea. .. Hyperlipidemia:? Patient's most recent lipid panel showing improved total cholesterol and LDL. He has been consistent with his use of simvastatin.. Has been able to lose weight since last office visit.? Has been reducing his high cholesterol foods in his diet. .. Obesity:? Patient lost a few lb since last office visit. BMI remains at 36.5. He does report being physically active headaches job. He admits to adapting to better eating habits though does eat a lot of ice cream. .. Elevated fasting blood sugar: Noted elevated fasting blood sugar most recent labs. Will continue to follow fasting blood sugar and A1c. Laboratory Tests 05/08/23 12/03/23 09/14/24 07:02 07:58 07:34 RBC 5.05 Creatinine 0.93 Fasting Glucose 101 H 118 H Hemoglobin A1c % 5.2 5.6 Triglycerides 222 H 197 H Cholesterol 235 H 195 LDL Cholesterol, C alc 148 H 111 H [facility] Medical History Loud snoring Arthritis Elevated cholesterol Surgical History History of back surgery (11/07/23) History of carpal tunnel surgery of right wrist Family History Mother HIV disease Social History Household Members: Significant Other Housing: House Are you a primary group care worker to a significant other at home: No Do you presently have visiting nurse or other home services: No 75 years or older and lives alone: No Alcohol intake: current Alcohol intake frequency: holidays/special occasions only Alcohol type: beer Patient Tobacco Use Status: Former Tobacco user Tobacco use type: Cigarette e-Cigarette/Vaping Use: Never Used Second Hand Smoke Exposure: Yes Substance Use Type: Marijuana service: No Current occupational status: employed 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 Cognitive needs: No Hearing needs: No Vision needs: No Questionnaire Thrive Questionnaire Date Thrive assessed: 05/07/24 Are you currently unemployed and looking for a job?: No AUDIT C Alcohol Use Questionnaire (AUDIT-C) 2. How many drinks containing alcohol do you have on a typical day when you are drinking?: 1 or 2 3. How often do you have six or more drinks on one occasion?: Never Total Score: 0 ZHENG-7 AMB Questionnaire ZHENG-7 Date ZHENG - 7 assessed: 05/07/24 Source: Developed by Drs. Linden Villagomez, Harmony Henry, Frederic Gutierrez and colleagues, with an educational kelsie from [email or web address]. Review of Systems Const Denies headache(s) Eyes Denies loss of vision ENT Denies vertigo, Denies dizziness, Denies headache(s) and Denies sore throat Card Denies chest pain, Denies leg edema and Denies lightheadedness Resp Denies cough, Denies hemoptysis and Denies wheezing GI Denies abdominal pain, Denies melena, Denies constipation, Denies diarrhea and Denies vomiting Denies dysuria, Denies urinary frequency and Denies urinary urgency Musc Denies arthralgias, Denies joint swelling, Denies numbness and Denies tingling Neuro Denies Abnormal speech present, Denies behavioral changes, Denies vertigo, De nies dizziness, Denies headache(s), Denies loss of vision, Denies memory loss, Denies numbness and Denies tingling Psych Denies anxiety, Denies behavioral changes, Denies depression, Denies memory loss and Denies panic attacks Arnold/Lymph Denies easy bleeding and Denies easy bruising Aller/Immun Denies wheezing Physical exam (Primary Care) Vital Signs: Last Vital Signs BP 124/72 09/16/24 08:09 BMI result Body Mass Index 36.2 Tobacco/Smoking Status: Tobacco use Status Tobacco use date assessed 05/07/24 09/16/24 08:14 Patient Tobacco Use Status Former Tobacco user 09/16/24 08:14 Tobacco use type Cigarette 09/16/24 08:14 e-Cigarette/Vaping Use Never Used 09/16/24 08:14 Thrive Assessment: Date of Thrive Assessment Date Thrive assessed 05/07/24 09/16/24 08:14 Const General: healthy appearing, no acute distress, alert and awake Nutritional Appearance: well nourished Orientation/consciousness: oriented to person, oriented to place and oriented to time HENMT Ears: TM's normal bilaterally General nose exam: Normal nasal mucous membranes and turbinates present Eyes Conjunctivae: conjunctivae normal Sclerae: sclerae normal Pupils: Equal, round and reactive pupils present Neck Neck: Yes no lymphadenopathy and Yes no JVD Thyroid: Thyroid normal Carotids: no bruits Resp Effort & Inspection: normal respiratory effort and not tachypneic Auscultation: no crackles, no rales, no rhonchi and no wheezes Cardio Rate: regular rate Rhythm: regular rhythm Heart sounds: no murmurs and normal S1 and S2 GI Palpation (GI): Soft to palpation, nontender, no hepatomegaly and no splenomegaly Auscultation: normal bowel sounds Skin General skin exam: no rashes or lesions noted and dry skin Neuro General: oriented to person, oriented to place and oriented to time Cranial nerves: Yes Equal, round and reactive pupils present Speech: No Abnormal speech present Gait exam (Neuro): Normal gait present Motor exam (neuro): no tremor noted Extrem Right upper extremity: full ROM Left upper extremity: full ROM Right lower extremity: full ROM; no edema Left lower extremity: full ROM; no edema Psych Mental Status: mental status grossly normal Speech and movement: Normal speech and movement present Affect: normal affect Attitude: cooperative Thought process: Normal thought process present Office Procedures Flu Questionnaire Does the patient have a severe egg allergy?: No Immunizations Fluarix Triv [id number] (PF) 45 mcg (15 mcg x 3)/0.5 mL IM syringe Performing Provider: Missael Bear PA-C [facility] Documented (not given) by: ADITI Martinez on 09/16/24 08:15 Reason Not Given: Patient Refused Coding Level of Care Code Est Pt Level 4 (24490) Diagnoses Mixed hyperlipidemia E78.2 Hyperlipidemia type: mixed hyperlipidemia Class 2 obesity E66.812 Elevated fasting blood sugar R73.01 FLORINA (obstructive sleep apnea) G47.33 Assessment & Plan Assessment & Plan (1) Hyperlipidemia: Code(s): E78.5 - Hyperlipidemia, unspecified Category: Medical Qualifiers: Hyperlipidemia type: mixed hyperlipidemia Qualified Code(s): E78.2 - Mixed hyperlipidemia Plan: Patient's most recent lipid panel showing improved total cholesterol and LDL. He has been mostly consistent with his use of his simvastatin. Goal LDL is to remain below 130 (2) Class 2 obesity: Code(s): E66.812 - Obesity, class 2 Category: Medical Plan: Patient does understand his BMI is over 35 and will work on adapting to better eating habits to reduce his weight. Due to patient's difficulty with losing weight--> will check testosterone and sent for home sleep study (3) Elevated fasting blood sugar: Code(s): R73.01 - Impaired fasting glucose Category: Medical Plan: Patient's most recent fasting sugar at 01:10. A1c of 5.6. He will work on lifestyle and dietary modifications to reduce his sugar (4) FLORINA (obstructive sleep apnea): Code(s): G47.33 - Obstructive sleep apnea (adult) (pediatric) Category: Medical Plan: As above patient does report his significant other reports snoring and apneic episodes at night. He does have a moderate risk for obstructive sleep apnea. Will send for home sleep study to evaluate for obstructive sleep apnea. Orders: Orders Lipid Panel Today E78.9 - Disorder of lipoprotein metabolism, unspecified Hemoglobin A1c Today R73.01 - Impaired fasting glucose Testosterone, Free/Total Today E66.812 - Obesity, class 2 Comprehensive [place]. Panel Fast Today R73.01 - Impaired fasting glucose Complete Blood Count no Diff Today R73.01 - Impaired fasting glucose RT home sleep study Today G47.33 - Obstructive sleep apnea (adult) (pediatric) Influenza [id number] Immunization Today Z23 - Encounter for immunization Medications: New tadalafil 20 mg PO DAILY 10 days PRN 10 tabs 0RF sexual activity N52.8 - Other male erectile dysfunction Patient Instructions: Goal: LDL to remain below 130 Barriers: Adherence to physical activity and healthy eating habits
== END 2024-09-16 08:41 | disposition home or self-care (01) ==
PROVIDERS: PCP Physician Assistant; Visit Provider Physician Assistant
DX: E78.2 Mixed hyperlipidemia (principal); E66.812 Obesity, class 2; Z68.36 Body mass index [BMI] 36.0-36.9, adult; R73.01 Impaired fasting glucose; G47.33 Obstructive sleep apnea (adult) (pediatric)

== ENCOUNTER → 2024-09-16 07:58 | Outpatient (BNVA) | payer OTHER, SELFPAY | PROVIDERS: PCP Physician Assistant; Visit Provider Physician Assistant | DX: E78.2 Mixed hyperlipidemia (principal); E66.812 Obesity, class 2; R73.01 Impaired fasting glucose; G47.33 Obstructive sleep apnea (adult) (pediatric); Z71.3 Dietary counseling and surveillance | CPT/HCPCS: 90471; 99212 ==

== ENCOUNTER → 2024-11-02 07:57 | Outpatient (REF) | payer OTHER, SELFPAY | LOC: HO.SL 07:57 | PROVIDERS: PCP Physician Assistant; Visit Provider Physician Assistant | DX: G47.33 Obstructive sleep apnea (adult) (pediatric) (principal) | CPT/HCPCS: 95806 ==

== ENCOUNTER → 2024-11-02 08:46 | Outpatient (BNV) | payer OTHER, SELFPAY | PROVIDERS: PCP Physician Assistant; Visit Provider Internal Medicine | DX: R06.83 Snoring (principal); R40.0 Somnolence | CPT/HCPCS: 95806 ==

== ENCOUNTER 2025-02-17 15:12 | Outpatient (AMB) | payer OTHER, SELFPAY ==
--- NOTE | 2025-02-17 15:27 | AM.OFFWIN_ITS ---
Intake Vital Signs 02/17/25 15:28 Height 5 ft 8 in Weight 214 lb BMI 32.5 BP 106/76 Blood Pressure Location Lt brachial Position Sitting Respiration 18 Pulse 74 Pulse Source Pulse Oximeter Temp 97.8 F Temp Source Oral Pulse Oximetry (%) 98 Oxygen Delivery Method Room Air Intake Visit Reasons: EP LT heel pain Intake Note: Pt is here today for a walk in visit. Pt c/o L heel pain for 6 weeks now. Patient Tobacco Use Status: Former Tobacco user Allergies bee pollen [bee stings] Allergy (Severe, Verified 02/17/25 15:32) Swelling Medication List - Last Reconciled 02/17/25 by Willard Salas MD simvastatin 20 mg PO DAILY 90 days tadalafil 20 mg PO DAILY PRN 10 days HPI EP LT heel pain HPI Details History - The patient is a 45-year-old male pres enting with left heel pain. - The pain began around six to seven wee ks ago and occurs daily but is not constant. - It is primarily brought on by walking or extended periods of standing. - The patient suspects a bone spur but n otes the pain's inconsistency. - Describes pain quality variably as sha rp, burning, or tingling. - Activity level and footwear influence symptoms; cushioned shoes and limited activity may alleviate pain. - No previous imaging studies, such as x -rays, have been performed. - The patient previously used ibuprofen, although effectiveness is variable. Problem List - Heel Pain Patient Instructions - Obtain an x-ray of the affected left h eel to assess for a heel spur. - Medications were prescribed; take as d irected when pain begins, with breakfast, and you may repeat after 12 hours if needed for 2-3 days. - Cease use of ibuprofen and switch to p rescribed medication. 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 - Await results from the x-ray, which wi ll be communicated after radiology review. Review of Systems - General: No fever no chills - Neurological: No headaches no dizziness - Ear nose throat: No sore throat no hearing difficulty no ear pain - Cardiovascular: No syncope, no chest pain, no palpitations - Gastrointestinal: No nausea vomiting or diarrhea Physical Exam General: No acute distress HEENT: No acute findings Neck: Supple Respiratory system: Able to talk in full sentences, no audible wheeze cardiovascular: S1-S2 regular in rate and rhythm Gastrointestinal: No pain Extremities: Pain in the left heel, with pressure, no pain over Achilles tendon or around ankle INVESTIGATION LIEUTENANT: Alert awake oriented x3 motor sensory intact Skin: Normal turgor PENDING SALE TO [facility] Medical History Loud snoring Arthritis Elevated cholesterol Surgical History History of back surgery (11/07/23) History of carpal tunnel surgery of right wrist Family History Mother HIV disease Social History Household Members: Significant Other Housing: House Are you a primary intensive care nurse to a significant other at home: No Do you presently have visiting nurse or other home services: No Alcohol intake: current Alcohol intake frequency: holidays/special occasions only Alcohol type: beer Patient Tobacco Use Status: Former Tobacco user Tobacco use type: Cigarette e-Cigarette/Vaping Use: Never Used Second Hand Smoke Exposure: Yes Substance Use Type: Marijuana service: No Current occupational status: employed 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 Cognitive needs: No Hearing needs: No Vision needs: No Physical Exam Vital Signs: Last Vital Signs Temp 97.8 F 02/17/25 15:28 Pulse 74 02/17/25 15:28 Resp 18 02/17/25 15:28 BP 106/76 02/17/25 15:28 Pulse Ox 98 02/17/25 15:28 Oxygen Delivery Method Room Air 02/17/25 15:28 BMI result Body Mass Index 32.5 Assessment & Plan Assessment & Plan (1) Foot pain, left: Code(s): M79.672 - Pain in left foot Plan History - The patient is a 45-year-old male presenting with left heel pain. - The pain began around six to seven weeks ago and occurs daily but is not constant. - It is primarily brought on by walking or extended periods of standing. - The patient suspects a bone spur but notes the pain's inconsistency. - Describes pain quality variably as sharp, burning, or tingling. - Activity level and footwear influence symptoms; cushioned shoes and limited activity may alleviate pain. - No previous imaging studies, such as x-rays, have been performed. - The patient previously used ibuprofen, although effectiveness is variable. Problem List - Heel Pain Patient Instructions - Obtain an x-ray of the affected left heel to assess for a heel spur. - Medications were prescribed; take as directed when pain begins, with breakfast, and you may repeat after 12 hours if needed for 2-3 days. - Cease use of ibuprofen and switch to prescribed medication. 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 - Await results from the x-ray, which will be communicated after radiology review. Orders: Orders XR foot LT 2V Today M79.672 - Pain in left foot Medications: New diclofenac sodium 75 mg PO BID 20 tabs 0RF pain 10 days Coding Level of Care Code Est Pt Level 3 (06146) Diagnoses Foot pain, left M79.672
[2025-02-17 15:28] VITALS: BP 106/76; PULSE 74; RESP 18; TEMP 36.6; O2SAT 98; BMI 32.5
== END 2025-02-17 15:55 | disposition home or self-care (01) ==
PROVIDERS: PCP Physician Assistant; Visit Provider Internal Medicine
DX: M79.672 Pain in left foot (principal)

== ENCOUNTER 2025-02-17 15:46 | Outpatient (REF) | payer OTHER, SELFPAY ==
--- NOTE | ~2025-02-17 | XR_ITS ---
EXAMINATION: XR FOOT 1-2 VIEWS LEFT HISTORY: M79.672 - Pain in left foot COMPARISON: There are no prior studies available for comparison. FINDINGS: Three views of the left foot are submitted. Osseous mineralization is normal. There is no fracture or dislocation. A well-corticated osseous density adjacent to the tip of the medial malleolus is likely related to old trauma. The joint spaces are preserved. The soft tissues are unremarkable. XR/XR foot LT 2V IMPRESSION: Unremarkable examination of the left foot. Electronically signed by: Linden Lombardo MD 02/18/2025 08:28 AM EDT
== END 2025-02-17 15:47 | disposition home or self-care (01) ==
LOC: HO.HMGCX 15:46
PROVIDERS: PCP Physician Assistant; Visit Provider Internal Medicine
DX: M79.672 Pain in left foot (principal)
CPT/HCPCS: 73620; 99212

== ENCOUNTER → 2025-02-17 15:50 | Outpatient (BNV) | payer OTHER, SELFPAY | PROVIDERS: PCP Physician Assistant; Visit Provider Radiology Diagnostic Radiology | DX: M79.672 Pain in left foot (principal) | CPT/HCPCS: 73620 ==

== ENCOUNTER 2025-03-12 06:52 | Outpatient (REF) | payer OTHER, SELFPAY ==
[2025-03-12 07:58] LABS: Hematocrit 45.6 % (42.0-52.0); Hemoglobin 15.3 g/dl (14.0-18.0); Mean Corpuscular HGB Conc 33.6 g/dl (31.0-36.0); Mean Corpuscular Hemoglobin 30.5 pg (27.0-33.0); Mean Platelet Volume 10.1 fL (9.4-12.4); Platelet Count 254 X10*3/uL (160-400); Red Blood Count 5.01 X10*6/uL (4.60-5.80); Red Cell Distribution Width 12.9 % (11.0-16.0); White Blood Count 7.3 X10*3/uL (4.8-10.8)
[2025-03-12 08:26] LABS: Alanine Aminotransferase 38 U/L (0-40); Alkaline Phosphatase 74 U/L (39-117); Anion Gap 11 (12-20); Aspartate Amino Transferase 31 U/L (5-37); Bilirubin Total 0.5 mg/dL (0.0-1.0); Blood Urea Nitrogen 13 mg/dL (9-16); Carbon Dioxide 26 mmol/L (22-29); Chloride 111 mmol/L (96-108); Cholesterol 164 mg/dL (<200); Estimated Glomerular Filt Rate > 60; Glucose Fasting 104 mg/dL (60-99); HDL Cholesterol 46 mg/dL (>40); LDL Cholesterol Calculated 99 mg/dL (<100); Potassium 4.7 mmol/L (3.3-5.1); Sodium 143 mmol/L (135-145); Total Protein 6.8 g/dL (6.5-8.0); Triglycerides 97 mg/dL (<150)
[2025-03-18 11:28] LABS: Testosterone, Free 74.1 pg/mL (35.0-155.0); Testosterone, Total 338 ng/dL (250-1100)
== END 2025-03-12 06:53 | disposition home or self-care (01) ==
LOC: HO.LAB 06:52
PROVIDERS: PCP Physician Assistant; Visit Provider Physician Assistant
DX: E78.9 Disorder of lipoprotein metabolism, unspecified (principal); R73.01 Impaired fasting glucose; E66.812 Obesity, class 2; E78.00 Pure hypercholesterolemia, unspecified
CPT/HCPCS: 36415; 80053; 80061; 84402; 84403; 85027

== ENCOUNTER 2025-03-17 07:54 | Outpatient (AMB) | payer OTHER, SELFPAY ==
[2025-03-17 08:01] VITALS: BP 122/68; PULSE 79; O2SAT 98; BMI 32.8
--- NOTE | 2025-03-17 08:01 | A.OFFPC_ITS ---
Vital Signs 03/17/25 08:01 Height 5 ft 8 in Weight 216 lb BMI 32.8 BP 122/68 Blood Pressure Location Lt brachial Position Sitting Pulse 79 Pulse Source Pulse Oximeter Pulse Oximetry (%) 98 Oxygen Delivery Method Room Air Intake Visit Reasons: 6 Months f/u Allergies bee pollen [bee stings] Allergy (Severe, Verified 03/17/25 08:19) Swelling Medication List - Last Reconciled 03/17/25 by Missael Bear PA-C simvastatin 20 mg PO DAILY 90 days tadalafil 20 mg PO DAILY PRN 10 days Tobacco use date assessed: 03/17/25 Dental Screening Dental Screen Date: 03/17/25 Did you have a dental visit in the last 12 months?: Yes Did you have a dental problem in the last 6 months where you did not have access to dental care?: No Was dental information given to patient?: Patient has dentist HPI 6 Months f/u HPI Details Patient is a 45-year-old male here today for a follow-up visit? Patient has a past medical history significant for hyperlipidemia, elevated blood pressure readings, obesity, lumbar disc disease -Concern---> patient reports suffering w ith left heel pain. 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 The pain is predominantly in the left heel, constant, and exacerbates with weight-bearing activities. Despite being evaluated via x-ray though were reportedly unremarkable. Various interventions, including the use of supportive footwear, have provided limited relief. .. Hyperlipidemia:? Patient's most recent lipid panel showing improved total cholesterol and LDL. He has been consistent with his use of simvastatin.. Has been able to lose weight since last office visit.? Has been reducing his high cholesterol foods in his diet. .. Class 1 Obesity:? Patient lost a few lb since last office visit. BMI remains at 32.8. He does report being physically active headaches job. He admits to adapting to better eating habits though does eat a lot of ice cream. .. Elevated fasting blood sugar: Most recent labs showing much improved fasting blood sugar Laboratory Tests 12/03/23 09/14/24 03/12/25 07:58 07:34 07:07 RBC 5.01 Fasting Glucose 118 H 104 H Triglycerides 197 H 97 Cholesterol 235 H 164 LDL Cholesterol, C alc 148 H 111 H 99 [facility] Medical History (Updated 03/17/25 @ 08:50 by Missael Bear PA-C) Arthritis of left knee Loud snoring Arthritis Elevated cholesterol Surgical History History of back surgery (11/07/23) History of carpal tunnel surgery of right wrist Family History Mother HIV disease Social History Household Members: Significant Other Housing: House Are you a primary career coordinator to a significant other at home: No Do you presently have visiting nurse or other home services: No 75 years or older and lives alone: No Alcohol intake: current Alcohol intake frequency: holidays/special occasions only Alcohol type: beer Patient Tobacco Use Status: Former Tobacco user Tobacco use type: Cigarette e-Cigarette/Vaping Use: Never Used Second Hand Smoke Exposure: Yes Substance Use Type: Marijuana service: No Current occupational status: employed 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 Cognitive needs: No Hearing needs: No Vision needs: No Questionnaire PHQ-9 Over the last 2 weeks, how often have you been bothered by any of the following problems? 1. Little interest or pleasure in doing things: not at all 2. Feeling down, depressed, or hopeless: not at all 3. Trouble falling or staying asleep, or sleeping too much: not at all 4. Feeling tired or having little energy: not at all 5. Poor appetite or overeating: not at all 6. Feeling bad about yourself - or that you are a failure or have let yourself or your family down: not at all 7. Trouble concentrating on things, such as reading the newspaper or watching television: not at all 8. Moving or speaking so slowly that other people could have noticed. Or the opposite - being so fidgety or restless that you have been moving around a lot more than usual: not at all 9. Thoughts that you would be better off or of hurting yourself in some way: not at all Total score: 0 Depression Screening Interpretation: Negative Depression Screening Done: Yes 27565 - PHQ-9 Billing: Yes Source: Developed by Drs. Linden Villagomez, Harmony Henry, Frederic Gutierrez and colleagues, with an educational kelsie from [employer]. Thrive Questionnaire Date Thrive assessed: 03/17/25 I am a: Patient What is your living situation today?: I have a steady place to live Within the past 12 months, did the food you bought not last and you didn't have the money to get more?: Never true Within the past 12 months, did you worry whether your food would run out before you got money to buy more?: Never true Do you have trouble paying for medicines?: No Do you have trouble getting transportation to medical appointments?: No Do you have trouble paying your heating and electricity bill?: No Do you have trouble taking care of your child, family member or friend?: No Do you have trouble with day-to-day activities such as bathing, preparing meals, shopping, managing finances, etc.?: No Are you currently unemployed and looking for a job?: No Are you interested in more education?: No Currently or been in a relationship where the following occur: No concerns reported THRIVE Score: 0 AUDIT C Alcohol Use Questionnaire (AUDIT-C) 2. How many drinks containing alcohol do you have on a typical day when you are drinking?: 1 or 2 3. How often do you have six or more drinks on one occasion?: Never Total Score: 0 ZHENG-7 AMB Questionnaire ZHENG-7 Date ZHENG - 7 assessed: 03/17/25 Feeling nervous, anxious, or on edge: 0 = Not at all Not being able to stop or control worryin = Not at all Worrying too much about different things: 0 = Not at all Trouble relaxin = Not at all Being so restless that it is hard to sit still: 0 = Not at all Becoming easily annoyed or irritable: 0 = Not at all Feeling afraid as if something awful might happen: 0 = Not at all Total ZHENG-7 score (0-4 normal; 5-9 mild; 10-14 moderate; 15-21 severe): 0 Source: Developed by Drs. Linden Villagomez, Frederic Campa and colleagues, with an educational kelsie from [employer]. ZHENG-7 Assessment Billing ZHENG-7 Assessment Tool: ZHENG-7 Assessment 33561 Review of Systems Const Denies headache(s) Eyes Denies loss of vision ENT Denies vertigo, Denies dizziness, Denies headache(s) and Denies sore throat Card Denies chest pain, Denies leg edema and Denies lightheadedness Resp Denies cough, Denies hemoptysis and Denies wheezing GI Denies abdominal pain, Denies melena, Denies constipation, Denies diarrhea and Denies vomiting Denies dysuria, Denies urinary frequency and Denies urinary urgency Musc Denies arthralgias, Denies joint swelling, Denies numbness and Denies tingling Neuro Denies Abnormal speech present, Denies behavioral changes, Denies vertigo, Denies dizziness, Denies headache(s), Denies loss of vision, Denies memory loss, Denies numbness and Denies tingling Psych Denies anxiety, Denies behavioral changes, Denies depression, Denies memory loss and Denies panic attacks Arnold/Lymph Denies easy bleeding and Denies easy bruising Aller/Immun Denies wheezing Physical exam (Primary Care) Vital Signs: Last Vital Signs Pulse 79 03/17/25 08:01 BP 122/68 03/17/25 08:01 Pulse Ox 98 03/17/25 08:01 Oxygen Delivery Method Room Air 03/17/25 08:01 BMI result Body Mass Index 32.8 BMI Assessment/Plan discussion: High BMI High, discussed plan: lifestyle, weight reduction, dietary and physical activity Tobacco/Smoking Status: Tobacco use Status Tobacco use date assessed 03/17/25 03/17/25 08:04 Patient Tobacco Use Status Former Tobacco user 03/17/25 08:04 Tobacco use type Cigarette 03/17/25 08:04 e-Cigarette/Vaping Use Never Used 03/17/25 08:04 PHQ-9: PHQ-9 Score PHQ-9: Total score 0 03/17/25 08:04 Depression Screening Interpretation: Negative Thrive Assessment: Date of Thrive Assessment Date Thrive assessed 03/17/25 03/17/25 08:04 Currently or been in a relationship where the following occur: No concerns reported Const General: healthy appearing, no acute distress, alert and awake Nutritional Appearance: well nourished Orientation/consciousness: oriented to person, oriented to place and oriented to time HENMT Ears: TM's normal bilaterally General nose exam: Normal nasal mucous membranes and turbinates present Eyes Conjunctivae: conjunctivae normal Sclerae: sclerae normal Pupils: Equal, round and reactive pupils present Neck Neck: Yes no lymphadenopathy and Yes no JVD Thyroid: Thyroid normal Carotids: no bruits Resp Effort & Inspection: normal respiratory effort and not tachypneic Auscultation: no crackles, no rales, no rhonchi and no wheezes Cardio Rate: regular rate Rhythm: regular rhythm Heart sounds: no murmurs and normal S1 and S2 GI Palpation (GI): Soft to palpation, nontender, no hepatomegaly and no splenomegaly Auscultation: normal bowel sounds Back/Spine/Pelvis Other: PATIENT AMBULATING WITH AN ANTALGIC GAIT Skin General skin exam: no rashes or lesions noted and dry skin Neuro General: oriented to person, oriented to place and oriented to time Cranial nerves: Yes Equal, round and reactive pupils present Speech: No Abnormal speech present Gait exam (Neuro): Normal gait present Motor exam (neuro): no tremor noted Extrem Right upper extremity: full ROM Left upper extremity: full ROM Right lower extremity: full ROM; no edema Left lower extremity: full ROM; no edema Psych Mental Status: mental status grossly normal Speech and movement: Normal speech and movement present Affect: normal affect Attitude: cooperative Thought process: Normal thought process present Coding Level of Care Code Est Pt Level 4 (32774) Diagnoses Mixed hyperlipidemia E78.2 Hyperlipidemia type: mixed hyperlipidemia Elevated fasting blood sugar R73.01 Plantar fasciitis, left M72.2 Class 1 obesity E66.811 Additional Codes PHQ-9 - 00013 - PHQ-9 Billing: Yes ([id number]) ZHENG-7 Assessment Billing - ZHENG-7 Assessment Tool: ZHENG-7 Assessment [id number] ([id number]) Assessment & Plan Assessment & Plan (1) Hyperlipidemia: Code(s): E78.5 - Hyperlipidemia, unspecified Category: Medical Qualifiers: Hyperlipidemia type: mixed hyperlipidemia Qualified Code(s): E78.2 - Mixed hyperlipidemia Plan: Patient's most recent lipid panel showing improved total cholesterol and LDL. He has been mostly consistent with his use of his simvastatin. Goal LDL is to remain below 130 (2) Elevated fasting blood sugar: Code(s): R73.01 - Impaired fasting glucose Category: Medical Plan: Patient's most recent fasting sugar at 01:10. A1c of 5.6. He will work on lifestyle and dietary modifications to reduce his sugar (3) Plantar fasciitis, left: Code(s): M72.2 - Plantar fascial fibromatosis Category: Medical Plan: Treatment focuses on conservative measures including icing, stretching, and proper footwear. Recommend a postal clerk consult for potential corticosteroid injection and prescribed a short course of oral prednisone for inflammation management. (4) Class 1 obesity: Code(s): E66.811 - Obesity, class 1 Category: Medical Plan: Patient does understand his BMI is over 30 will continue working on better eating habits and being physically active to continue weight. Orders: Orders Complete Blood Count no Diff Today E78.9 - Disorder of lipoprotein metabolism, unspecified Lipid Panel Today E78.9 - Disorder of lipoprotein metabolism, unspecified Hemoglobin A1c Today R73.01 - Impaired fasting glucose Comprehensive [place]. Panel Fast Today E78.9 - Disorder of lipoprotein metabolism, unspecified Referrals Podiatry Referral M72.2 - Plantar fascial fibromatosis
== END 2025-03-17 08:46 | disposition home or self-care (01) ==
LOC: HO.HMCH 07:54
PROVIDERS: PCP Physician Assistant; Visit Provider Physician Assistant
DX: E78.2 Mixed hyperlipidemia (principal); R73.01 Impaired fasting glucose; E66.811 Obesity, class 1; Z68.32 Body mass index [BMI] 32.0-32.9, adult; M72.2 Plantar fascial fibromatosis

== ENCOUNTER → 2025-03-17 07:54 | Outpatient (BNVA) | payer OTHER, SELFPAY | PROVIDERS: PCP Physician Assistant; Visit Provider Physician Assistant | DX: E78.2 Mixed hyperlipidemia (principal); R73.01 Impaired fasting glucose; M72.2 Plantar fascial fibromatosis; E66.811 Obesity, class 1; Z68.32 Body mass index [BMI] 32.0-32.9, adult | CPT/HCPCS: 96127; 99212 ==

== ENCOUNTER 2025-05-13 08:03 | Outpatient (AMB) | payer OTHER, SELFPAY ==
--- OUTSIDE RECORDS SUMMARY | 2025-05-13 08:07 | XMS_ITS | Clinical Summary ---
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 Name Role Phone Missael Bear Primary Care Provider Allergies No known active allergies Encounters Date Type Department Care Team Description 04/14/2025 2:00 PM EDT Consult Orthopedic Surgery [facility] [address] [id number] Deonte Chapa DPM Plantar fascial fibromatosis (Primary Dx); Equinus contracture of ankle; Calcaneal spur of left foot from Last 3 Months Social History Tobacco Use Types Packs/Day Years Used Date Smoking Tobacco: Never Assessed Sex and Gender Information Value Date Recorded Sex Assigned at Not on file Legal Sex Male 1:16 PM EDT Gender Identity Not on file Sexual Orientation Not on file Last Filed Vital Signs Vital Sign Reading Time Taken Comments Blood Pressure - - Pulse - - Temperature - - Respiratory Rate - - Oxygen Saturation - - Inhaled Oxygen Concentration - - Weight 95.7 kg (211 lb) 04/14/2025 2:17 PM EDT Height 175.3 cm (5' 9 ) 04/14/2025 2:17 PM EDT Body Mass Index 31.16 04/14/2025 2:17 PM EDT Plan of Treatment Upcoming Encounters Date Type Department Care Team (Late st Contact Info) Description 05/26/2025 8:15 AM EDT Office Visit Orthopedic Surgery [facility] [address] [id number] Deonte Chapa DPM [address] [id number] Health Maintenance Due Date Last Done Comments Hepatitis B Vaccines (1 of 3 - 19+ 3-dose series) 1999 COVID-19 Vaccine (3 - 2023-2 5 season) 2024 04/18/2021, 03/29/2021 Cholesterol Screening (Lipid Panel) 03/31/2025 Colorectal Cancer Screening: Colonoscopy 03/31/2025 Depression Screening 03/31/2025 HIV Screening 03/31/2025 Hepatitis C Screening 03/31/2025 Social Influencers of Health Screening 03/31/2025 Influenza Vaccine (Season Ended) 2025 DTaP,Tdap,and Td Vaccines (2 - Td or Tdap) 08/18/2031 08/18/2021 HIB Vaccines Aged Out No longer eligi ble based on patient's age to complete this topic HPV Vaccines Aged Out No longer eligi ble based on patient's age to complete this topic Hepatitis A Vaccines Aged Out No long er eligible based on patient's age to complete this topic IPV Vaccines Aged Out No longer eligi ble based on patient's age to complete this topic MMR Vaccines Aged Out No longer eligi ble based on patient's age to complete this topic Meningococcal ACWY Vaccine Aged Out N o longer eligible based on patient's age to complete this topic Meningococcal B Vaccine Aged Out No l onger eligible based on patient's age to complete this topic Pneumococcal Vaccine: Pediatrics (0 to 5 Years) and At-Risk Patients (6 to 64 Years) Aged Out No longer eligible b ased on patient's age to complete this topic RSV Immunization Patients Under 20 months Aged Out No longer eligible b ased on patient's age to complete this topic Varicella Vaccines Aged Out No longer eligible based on patient's age to complete this topic Insurance [facility] [employer] Care Teams Spindle Frame Carver Relationship Specialty Start Date End Date Missael Bear PA PCP - General Physician Potato Seed Cutter 03/30/25
[2025-05-13 08:10] VITALS: BP 108/78; PULSE 84; RESP 20; TEMP 36.3; O2SAT 97; BMI 33.5
--- NOTE | 2025-05-13 08:10 | MHC.PC.OV ---
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 Required: No Accompanied by: Self / Same As Patient Allergies bee pollen [bee stings] Allergy (Severe, Verified 05/13/25 08:22) Swelling Medication List - Last Reconciled 05/13/25 by Missael Bear PA-C simvastatin 20 mg PO DAILY 90 days tadalafil 20 mg PO DAILY PRN 10 days Tobacco use date assessed: 05/13/25 Dental Screening Dental Screen Date: 05/13/25 Did you have a dental visit in the last 12 months?: Yes Did you have a dental problem in the last 6 months where you did not have access to dental care?: No Was dental information given to patient?: Patient has dentist HPI Annual Exam HPI Details Patient is a 45-year-old male here today for an annual physical. ? Patient has a past medical history significant for hyperlipidemia, elevated blood pressure readings, obesity, lumbar disc disease Plantar fasciitis left heel: Has followed up with Podiatry got a cortisone injection and reports his pain has significantly reduced though still is evident at times. He has not been taking much ibuprofen for inflammation and is willing to start taking ibuprofen to help reduce his inflammation. .. Hyperlipidemia:? Patient's most recent lipid panel showing improved total cholesterol and LDL. He has been consistent with his use of simvastatin.. Has been able to lose weight since last office visit.? Has been reducing his high cholesterol foods in his diet. .. Class 1 Obesity:? Patient gained a few lb since last office visit. BMI remains at 32.8. He does report being physically active headaches job. He admits to adapting to better eating habits though does eat a lot of ice cream. .. Elevated fasting blood sugar: Most recent labs showing much improved fasting blood sugar. Vaccines: Up-to-date with COVID vaccine and tetanus vaccine, Declines flu vaccine. Colorectal cancer screening: Willing to do colonoscopy [facility] Medical History Arthritis of left knee Loud snoring Arthritis Elevated cholesterol Surgical History History of back surgery (11/07/23) History of carpal tunnel surgery of right wrist Family History (Updated 05/13/25 @ 08:27 by Missael Bear PA-C) Mother HIV disease Brother Social History (Updated 05/13/25 @ 08:28 by Missael Bear PA-C) Household Members: Significant Other Housing: House Are you a primary pharmacy care coordinator to a significant other at home: No Do you presently have visiting nurse or other home services: No 75 years or older and lives alone: No Alcohol intake: current Alcohol intake frequency: holidays/special occasions only Alcohol type: beer Patient Tobacco Use Status: Former Tobacco user Tobacco use type: Cigarette e-Cigarette/Vaping Use: Never Used Second Hand Smoke Exposure: Yes Substance Use Type: Marijuana service: No Current occupational status: employed 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 Cognitive needs: No Hearing needs: No Vision needs: No Questionnaire PHQ-9 Over the last 2 weeks, how often have you been bothered by any of the following problems? 1. Little interest or pleasure in doing things: not at all 2. Feeling down, depressed, or hopeless: not at all 3. Trouble falling or staying asleep, or sleeping too much: not at all 4. Feeling tired or having little energy: not at all 5. Poor appetite or overeating: not at all 6. Feeling bad about yourself - or that you are a failure or have let yourself or your family down: not at all 7. Trouble concentrating on things, such as reading the newspaper or watching television: not at all 8. Moving or speaking so slowly that other people could have noticed. Or the opposite - being so fidgety or restless that you have been moving around a lot more than usual: not at all 9. Thoughts that you would be better off or of hurting yourself in some way: not at all Total score: 0 Depression Screening Interpretation: Negative Depression Screening Done: Yes 94357 - PHQ-9 Billing: Yes Source: Developed by Drs. Linden Villagomez, Harmony Henry, Frederic Gutierrez and colleagues, with an educational kelsie from [employer]. Thrive Questionnaire Date Thrive assessed: 05/13/25 I am a: Patient What is your living situation today?: I have a steady place to live Within the past 12 months, did the food you bought not last and you didn't have the money to get more?: Never true Within the past 12 months, did you worry whether your food would run out before you got money to buy more?: Never true Do you have trouble paying for medicines?: No Do you have trouble getting transportation to medical appointments?: No Do you have trouble paying your heating and electricity bill?: No Do you have trouble taking care of your child, family member or friend?: No Do you have trouble with day-to-day activities such as bathing, preparing meals, shopping, managing finances, etc.?: No Are you currently unemployed and looking for a job?: No Are you interested in more education?: No Please select the resources that you would like help with: None Currently or been in a relationship where the following occur: No concerns reported THRIVE Score: 0 AUDIT C Alcohol Use Questionnaire (AUDIT-C) 1. How often do you have a drink containing alcohol?: Monthly or less 2. How many drinks containing alcohol do you have on a typical day when you are drinking?: 1 or 2 3. How often do you have six or more drinks on one occasion?: Never Total Score: 1 Score Reviewed/Action Taken: No ZHENG-7 AMB Questionnaire ZHENG-7 Date ZHENG - 7 assessed: 05/13/25 Feeling nervous, anxious, or on edge: 0 = Not at all Not being able to stop or control worryin = Not at all Worrying too much about different things: 0 = Not at all Trouble relaxin = Not at all Being so restless that it is hard to sit still: 0 = Not at all Becoming easily annoyed or irritable: 0 = Not at all Feeling afraid as if something awful might happen: 0 = Not at all Total ZHENG-7 score (0-4 normal; 5-9 mild; 10-14 moderate; 15-21 severe): 0 Source: Developed by Drs. Linden Villagomez, Harmony Henry, Frederic Gutierrez and colleagues, with an educational kelsie from [employer]. ZHENG-7 Assessment Billing ZHENG-7 Assessment Tool: ZHENG-7 Assessment 58169 Review of Systems Const Denies body aches, Denies chills, Denies excessive sweating, Denies fatigue, Denies fever(s) and Denies headache(s) Eyes Denies blurry vision ENT Denies dysphagia, Denies vertigo, Denies dizziness, Denies headache(s), Denies hearing loss and Denies tinnitus Card Denies chest pain, Denies chest pain with activity, Denies syncope, Denies irregular heart rhythm and Denies dyspnea Resp Denies chest congestion, Denies cough, Denies hemoptysis, Denies dyspnea and Denies wheezing GI Denies abdominal pain, Denies melena, Denies hematochezia, Denies coffee ground emesis, Denies dysphagia, Denies diarrhea, Denies nausea and Denies vomiting Denies difficulty urinating, Denies dysuria, Denies urinary frequency, Denies urinary hesitancy and Denies urinary urgency Musc Denies arthralgias, Denies limited range of motion, Denies muscle cramps and Denies muscle weakness Skin/Breast Denies rash and Denies skin ulcer Neuro Denies Abnormal speech present, Denies confusion, Denies vertigo, Denies dizziness, Denies syncope, Denies headache(s), Denies memory loss and Denies seizure-like activity Psych Denies anxiety, Denies confusion, Denies depression, Denies memory loss, Denies panic attacks and Denies paranoia Endo Denies excessive sweating, Denies fatigue, Denies flushing, Denies polydipsia and Denies polyuria Aller/Immun Denies wheezing Physical exam (Primary Care) Vital Signs: Last Vital Signs Temp 97.3 F 05/13/25 08:10 Pulse 84 05/13/25 08:10 Resp 20 05/13/25 08:10 BP 108/78 05/13/25 08:10 Pulse Ox 97 05/13/25 08:10 Oxygen Delivery Method Room Air 05/13/25 08:10 BMI result Body Mass Index 33.5 BMI Assessment/Plan discussion: High BMI High, discussed plan: lifestyle, weight reduction, dietary and physical activity Tobacco/Smoking Status: Tobacco use Status Tobacco use date assessed 05/13/25 05/13/25 08:19 Patient Tobacco Use Status Former Tobacco user 05/13/25 08:19 Tobacco use type Cigarette 05/13/25 08:19 e-Cigarette/Vaping Use Never Used 05/13/25 08:19 PHQ-9: PHQ-9 Score PHQ-9: Total score 0 05/13/25 08:19 Depression Screening Interpretation: Negative Thrive Assessment: Date of Thrive Assessment Date Thrive assessed 05/13/25 05/13/25 08:19 Currently or been in a relationship where the following occur: No concerns reported Const General: cooperative, comfortable, no acute distress, alert and awake; No confusion Orientation/consciousness: oriented to person, oriented to place, patient oriented x3 and No confusion HENMT Head: Yes normocephalic Ears: external ears normal and TM's normal bilaterally Face and sinus: No sinus tenderness Mouth: Normal oral and palatal mucosa present and tongue normal Teeth and gingiva: dentition normal and gingiva normal Throat: Yes posterior oropharynx normal, Yes tonsils normal and Yes uvula midline Eyes Conjunctivae: conjunctivae normal Sclerae: sclerae normal Pupils: Equal, round and reactive pupils present EOM: EOMs intact bilaterally Direct Ophthalmoscopy: No no photophobia Neck Neck: Yes no lymphadenopathy, No tender and Yes no JVD Thyroid: Thyroid normal Carotids: no bruits Chest Chest palpation & inspection: no tenderness Resp Effort & Inspection: normal respiratory effort, no audible wheezes, not labored and no stridor Auscultation: no crackles, no rales, no rhonchi and no wheezes Cardio Jugular venous distension: no JVD Rate: regular rate, not bradycardic and not tachycardic Rhythm: regular rhythm Bruits: no carotid bruits Peripheral pulses: Peripheral pulses 2+ throughout GI Inspection: Yes normal to inspection, No abdominal wall ecchymosis and No visible herniation Palpation (GI): Soft to palpation, nontender, no guarding, not rigid and No hepatosplenomegaly present Auscultation: normoactive bowel sounds General: Yes no CVA tenderness Back/Spine/Pelvis Back: no CVA tenderness and No back tenderness Cervical Spine: cervical ROM normal Thoracic/Lumbar Spine: thoracic and lumbar spine normal to inspection, straight leg raise negative bilaterally, No thoraco-lumbar ROM limited and No lumbar spinal tenderness Skin Lesions: no lesions Rashes: no rashes Wounds: no wounds Neuro General: oriented to person, oriented to place, patient oriented x3, CN's II-XI intact bilaterally and No confusion Cranial nerves: Yes Equal, round and reactive pupils present and Yes Normal accommodation reflex present Cognition (Neuro): normal cognition Speech: No Abnormal speech present Gait exam (Neuro): Normal gait present Motor exam (neuro): 5/5 motor strength present throughout Extrem Right upper extremity: full ROM; no cyanosis Left upper extremity: full ROM; no cyanosis Right lower extremity: no edema Left lower extremity: no edema Psych Appearance: grossly normal Mental Status: mental status grossly normal Affect: normal affect Attitude: cooperative Thought process: Normal thought process present Coding Level of Care Code Est Pt Prev Care 40-64y(56158) Diagnoses Annual physical exam Z00.00 Mixed hyperlipidemia E78.2 Hyperlipidemia type: mixed hyperlipidemia Elevated fasting blood sugar R73.01 Class 1 obesity E66.811 Colon cancer screening Z12.11 Additional Codes ZHENG-7 Assessment Billing - ZHENG-7 Assessment Tool: ZHENG-7 Assessment 11234 ([id number]) PHQ-9 - 96469 - PHQ-9 Billing: Yes ([id number]) Assessment & Plan Assessment & Plan (1) Annual physical exam: Code(s): Z00.00 - Encounter for general adult medical examination without abnormal findings Category: Medical Plan: As per HPI (2) Hyperlipidemia: Code(s): E78.5 - Hyperlipidemia, unspecified Category: Medical Qualifiers: Hyperlipidemia type: mixed hyperlipidemia Qualified Code(s): E78.2 - Mixed hyperlipidemia Plan: Patient's most recent lipid panel showing improved total cholesterol and LDL. He has been mostly consistent with his use of his simvastatin. Goal LDL is to remain below 130 (3) Elevated fasting blood sugar: Code(s): R73.01 - Impaired fasting glucose Category: Medical Plan: Patient's most recent fasting sugar at 110. A1c of 5.6. He will work on lifestyle and dietary modifications to reduce his sugar (4) Class 1 obesity: Code(s): E66.811 - Obesity, class 1 Category: Medical Plan: Patient does understand his BMI is over 30 will continue working on better eating habits and being physically active to continue weight. (5) Colon cancer screening: Code(s): Z12.11 - Encounter for screening for malignant neoplasm of colon Category: Medical Plan: Patient willing to do colonoscopy Orders: Referrals Gastroenterology Referral Z12.11 - Encounter for screening for malignant neoplasm of colon Medications: Refilled tadalafil 20 mg PO DAILY 10 days PRN 10 tabs 0RF sexual activity N52.8 - Other male erectile dysfunction
== END 2025-05-13 09:59 | disposition home or self-care (01) ==
LOC: HO.HMCH 08:04
PROVIDERS: PCP Physician Assistant; Visit Provider Physician Assistant
DX: Z00.00 Encounter for general adult medical examination without abnormal findings (principal); E66.811 Obesity, class 1; Z68.33 Body mass index [BMI] 33.0-33.9, adult; E78.2 Mixed hyperlipidemia; R73.01 Impaired fasting glucose; Z12.11 Encounter for screening for malignant neoplasm of colon

== ENCOUNTER → 2025-05-13 08:03 | Outpatient (BNVA) | payer OTHER, SELFPAY | PROVIDERS: PCP Physician Assistant; Visit Provider Physician Assistant | DX: Z00.00 Encounter for general adult medical examination without abnormal findings (principal); E78.5 Hyperlipidemia, unspecified; M72.2 Plantar fascial fibromatosis; E66.811 Obesity, class 1; E78.2 Mixed hyperlipidemia; R73.01 Impaired fasting glucose; N52.8 Other male erectile dysfunction; Z68.33 Body mass index [BMI] 33.0-33.9, adult | CPT/HCPCS: 96127; 99396 ==

== ENCOUNTER 2025-11-09 06:57 | Outpatient (REF) | payer OTHER, SELFPAY ==
--- OUTSIDE RECORDS SUMMARY | 2025-11-09 07:01 | XMS_ITS | Clinical Summary ---
Author Organization [address] [place] [address] [place] [phone] Phone Care Team Providers Care Advertising Manager Name Role Phone Missael Bear Primary Care Provider Allergies No known active allergies Medications simvastatin (ZOCOR) 20 mg tablet Take 1 tablet (20 mg total) by mouth 1 (one) time each day. 08/08/2025 Active tadalafiL (CIALIS) 20 mg tablet TAKE 1 TABLET BY MOUTH DAILY SEXUAL ACTIVITY FOR 10 DAYS NEEDED 05/13/2025 Active Encounters Date Type Department Care Team Description 09/28/2025 3:15 PM EDT Office Visit Orthopedic [facility] [address] [phone] Deonte Chapa DPM Plantar fascial fibromatosis (Primary Dx); Equinus contracture of ankle; Calcaneal spur of left foot 08/17/2025 9:00 AM EDT Office Visit [facility] [address] [phone] Deonte Chapa DPM Plantar fascial fibromatosis (Primary Dx); Equinus contracture of ankle from Last 3 Months Social History Tobacco [...] - - Weight 95.7 kg (211 lb) 07/08/2025 8:10 AM EDT Height 175.3 cm (5' 9.02 ) 07/08/2025 8:10 AM ED T Body Mass Index 31.14 07/08/2025 8:10 AM EDT Plan of Treatment Upcoming Encounters Date Type Department Care Team (Late st Contact Info) Description 11/09/2025 2:45 PM EST Office Visit Orthopedic Surgery - [place] [address] [phone] Deonte Chapa, DPM [address] [phone] Health Maintenance Due Date Last Done Comments Colorectal Cancer Screening: Colonoscopy 1980 Hepatitis B Vaccines (1 of 3 - 19+ 3-dose series) 1999 HPV Vaccines (1 - 3-dose SCD M series) 2007 Depression Screening 12/02/2024 Cholesterol Screening (Lipid Panel) 03/31/2025 HIV Screening 03/31/2025 Hepatitis C Screening 03/31/2025 Social Influencers of Health Screening 03/31/2025 COVID-19 Vaccine (3 - 2024-2 6 season) 2025 04/18/2021, 03/29/2021 Influenza Vaccine (#1) 2025 DTaP,Tdap,and Td Vaccines (2 - Td or Tdap) 08/18/2031 08/18/2021 RSV Immunization Adult Patients (1 - 1-dose 75+ series) 2055 HIB Vaccines Aged Out No longer eligi [...] 5 Years) and At-Risk Patients (6 to 49 Years) Aged Out No longer eligible b ased on patient's age to complete this topic RSV Immunization Patients Under 20 months Aged Out No longer eligible b ased on patient's age to complete this topic Varicella Vaccines Aged Out No longer eligible based on patient's age to complete this topic Procedures Procedure Name Priority Date/Time Associated Diagnosis Comments INJECTION TENDON OR LIGAMENT Routine 09/28/2025 3:15 PM EDT Plantar fascial fibromatosis from Last 3 Months Results * Injection tendon or ligament (09/28/2025 3:15 PM EDT) Deonte Glynn DPM - 09/28/2025 3:15 PM EDT Deonte Chapa DPM 09/28/2025 5:56 PM Injection tendon or ligament Indications: pain Details: 25 G needle Medications: 0.5 mL lidocaine (PF) 1 %; 20 mg triamcinolone acetonide 40 mg/mL Informed Consent: Site: Foot ligament tendon us Deonte Chapa DPM IN CLINIC/BEDSIDE ORDERAB LES Final Result from Last 3 Months Insurance [facility] [employer] Care Teams Advertising Manager Relationship Specialty Start Date End Date Missael Bear PA [address] [place] [phone] PCP - General Physician Cashier And Salesperson 03/30/25
[2025-11-09 07:30] LABS: Hematocrit 50.6 % (42.0-52.0); Hemoglobin 17.1 g/dl (14.0-18.0); Mean Corpuscular HGB Conc 33.8 g/dl (31.0-36.0); Mean Corpuscular Hemoglobin 30.9 pg (27.0-33.0); Mean Corpuscular Volume 91.3 fL (80.0-98.0); NRBC Abs Auto 0.000 X10*3/uL (0.0-0.012); NRBC Pct Auto 0.0 /100WBC (0.0-0.2); Platelet Count 260 X10*3/uL (160-400); Red Blood Count 5.54 X10*6/uL (4.60-5.80); White Blood Count 10.1 X10*3/uL (4.8-10.8)
[2025-11-09 08:16] LABS: Alanine Aminotransferase 35 U/L (0-40); Albumin Level 4.6 g/dL (3.5-5.0); Alkaline Phosphatase 83 U/L (39-117); Anion Gap 14 (12-20); Aspartate Amino Transferase 27 U/L (5-37); Blood Urea Nitrogen 15 mg/dL (9-16); Calcium 9.6 mg/dL (8.4-10.2); Carbon Dioxide 27 mmol/L (22-29); Chloride 109 mmol/L (96-108); Cholesterol 234 mg/dL (<200); Estimated Glomerular Filt Rate > 60; HDL Cholesterol 46 mg/dL (>40); Potassium 4.7 mmol/L (3.3-5.1); Sodium 145 mmol/L (135-145); Total Protein 7.5 g/dL (6.5-8.0); Triglycerides 131 mg/dL (<150)
== END 2025-11-09 06:58 | disposition home or self-care (01) ==
LOC: HO.LAB 06:57
PROVIDERS: PCP Physician Assistant; Visit Provider Physician Assistant
DX: R73.01 Impaired fasting glucose (principal); E78.9 Disorder of lipoprotein metabolism, unspecified
CPT/HCPCS: 36415; 80053; 80061; 83036; 85027

== ENCOUNTER 2025-11-17 08:19 | Outpatient (AMB) | payer OTHER, SELFPAY ==
--- OUTSIDE RECORDS SUMMARY | 2025-11-17 08:30 | XMS_ITS | Clinical Summary ---
Author Organization [address] [place] [address] [place] [phone] Phone Care Team Providers Care Vp Human Resources Name Role Phone Missael Bear Primary Care Provider Allergies No known active allergies Medications simvastatin (ZOCOR) 20 mg tablet Take 1 tablet (20 mg total) by mouth 1 (one) time each day. 08/08/2025 Active tadalafiL (CIALIS) 20 mg tablet TAKE 1 TABLET BY MOUTH DAILY SEXUAL ACTIVITY FOR 10 DAYS NEEDED 05/13/2025 Active Encounters Date Type Department Care Team Description 11/09/2025 2:45 PM EST Office Visit Orthopedic [address] [phone] Deonte Chapa DPM Plantar fascial fibromatosis (Primary Dx); Equinus contracture of ankle; Calcaneal spur of left foot 09/28/2025 3:15 PM EDT Office Visit Orthopedic [place] [phone] [phone] Deonte Chapa DPM Plantar fascial fibromatosis (Primary [...] Oxygen Concentration - - Weight 95.7 kg (210 lb 15.7 oz) 11/09/2025 2:42 PM EST Height 175.3 cm (5' 9.02 ) 11/09/2025 2:42 PM ES T Body Mass Index 31.14 11/09/2025 2:42 PM EST Plan of Treatment Upcoming Encounters Date Type Department Care Team (Late st Contact Info) Description 12/21/2025 3:00 PM EST Office Visit Orthopedic Surgery - [place] [address] [phone] Deonte Chapa, DPM [address] [phone] Health Maintenance Due Date Last Done Comments [...] Final Result from Last 3 Months Insurance [facility] [employer] Care Teams Vp Human Resources Relationship Specialty Start Date End Date Missael Bear PA [address] [place] [phone] PCP - General Physician Finance Professor 03/30/25
--- NOTE | 2025-11-17 08:40 | A.OFFPC_ITS ---
Intake Visit Reasons: 6 month f/u Security Assurance Analyst Required: No Accompanied by: Self / Same As Patient Allergies bee pollen (bee stings) Allergy (Severe, Verified 11/17/25 08:41) Swelling Medication List - Last Reconciled 11/17/25 by Jean-Pierre Florence MD simvastatin 20 mg PO DAILY 90 days tadalafil 20 mg PO DAILY PRN 10 days Tobacco use date assessed: 05/13/25 Dental Screening Dental Screen Date: 05/13/25 HPI HPI Comments History of Present Illness Details The patient is a 45 year old male with PMH of HLD, elevated blood pressure readings, lipomas, plantar fascitis presenting for follow-up on several chronic and new issues, including left foot plantar fascitis, shoulder lipomas, vision problems, and to address a missed colonoscopy appointment. The patient reports a history of left plantar fasciitis for approximately 1.5 years. He has been receiving injections from a banana handler every six weeks, with the last one being a week ago and the next scheduled in five weeks. He notes that his pain improved after the shots but he still feels discomfort, particularly in the morning, which subsides after a few steps. The patient has also noted lumps on his left shoulder, which he states have been present for years but have recently gotten a little bigger. He expresses a desire to have them removed. Regarding his vision, the patient states he has always had vision problems but never wore glasses. He is now experiencing hazy vision and difficulty with near vision, such as reading menus. He attempted to make an eye appointment but encountered difficulties with scheduling without a referral. The patient missed a scheduled colonoscopy appointment and was unable to reschedule despite leaving messages. Recent lab work shows an elevation in his cholesterol, with an LDL of 162 mg/dL and total cholesterol of 234 mg/dL, up from 99 mg/dL and 164 mg/dL six months ago, respectively. He attributes a recent weight gain to decreased physical activity due to his foot pain. He reports making dietary changes, including stopping sugar and bread, and now uses honey and agave as sweeteners. [facility] Medical History Arthritis of left knee Loud snoring Arthritis Elevated cholesterol Surgical History History of back surgery (12/07/23) History of carpal tunnel surgery of right wrist Family History (Updated 05/13/25 @ 08:27 by Missael Bear PA-C) Mother HIV disease Brother Social History (Updated 05/13/25 @ 08:28 by Missael Bear PA-C) Household Members: Significant Other Housing: House Are you a primary health care analyst to a significant other at home: No Do you presently have visiting nurse or other home services: No 75 years or older and lives alone: No Alcohol intake: current Alcohol intake frequency: holidays/special occasions only Alcohol type: beer Patient Tobacco Use Status: Former Tobacco user Tobacco use type: Cigarette e-Cigarette/Vaping Use: Never Used Second Hand Smoke Exposure: Yes Substance Use Type: Marijuana service: No Current occupational status: employed 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 Cognitive needs: No Hearing needs: No Vision needs: No Questionnaire Thrive Questionnaire Date Thrive assessed: 05/13/25 What is your living situation today?: I have a steady place to live Within the past 12 months, did the food you bought not last and you didn't have the money to get more?: Never true Within the past 12 months, did you worry whether your food would run out before you got money to buy more?: Never true Do you have trouble paying for medicines?: No Do you have trouble getting transportation to medical appointments?: No Do you have trouble paying your heating and electricity bill?: No Do you have trouble taking care of your child, family member or friend?: No Do you have trouble with day-to-day activities such as bathing, preparing meals, shopping, managing finances, etc.?: No Are you currently unemployed and looking for a job?: No Are you interested in more education?: No Please select the resources that you would like help with: None Currently or been in a relationship where the following occur: No concerns reported THRIVE Score: 0 ZHENG-7 AMB Questionnaire ZHENG-7 Date ZHENG - 7 assessed: 05/13/25 Source: Developed by Drs. Linden Villagomez, Harmony Henry, Frederic Gutierrez and colleagues, with an educational kelsie from [employer]. Review of Systems Const Details: As per HPI. Physical exam (Primary Care) Tobacco/Smoking Status: Tobacco use Status Tobacco use date assessed 05/13/25 11/17/25 08:42 Patient Tobacco Use Status Former Tobacco user 11/17/25 08:42 Tobacco use type Cigarette 11/17/25 08:42 e-Cigarette/Vaping Use Never Used 11/17/25 08:42 Thrive Assessment: Date of Thrive Assessment Date Thrive assessed 05/13/25 11/17/25 08:42 Currently or been in a relationship where the following occur: No concerns reported Const Other: Pertinent findings are in BOLD GENERAL APPEARANCE NAD, activity normal for age, well developed/ well nourished, no cyanosis, pallor, or diaphoresis. EYES lids/conjunctiva normal. EARS/NOSE/THROAT Mucous membranes moist, nares normal, lips/teeth normal uvula midline without oral pharyngeal erythema, exudate or swelling TMs normal bilaterally. No lymphangitis/lymphedema. HEAD/NECK normocephalic atraumatic, no facial trauma, neck is supple. RESPIRATORY respiratory effort normal, speaks in full sentences, no tripod position, no accessory muscle use. Lungs clear to auscultation without rhonchi, wheezes, rales CARDIAC Regular rate and rhythm, no edema. ABDOMINAL Soft, ND/NT. No evidence of fluid wave. No pulsatile masses on exam, rebound tenderness, Gonzalez sign or pain over Mcburney's point. MUSCLES/EXTREMITIES No abnormal range of motion, no swelling. SKIN Warm, pink and dry. No rashes, dermatoses, petechiae or lesions. NEUROLOGICAL Speech is clear and appropriate. Normal level of consciousness. Gait and coordination are normal. 5/5 strength in all extremities. PSYCH Normal mood and affect. Judgement/competence is appropriate Coding Level of Care Code Est Pt Level 4 (37208) Diagnoses Vision problem H54.7 Multiple lipomas D17.9 Mixed hyperlipidemia E78.2 Hyperlipidemia type: mixed hyperlipidemia Colon cancer screening Z12.11 Assessment & Plan Assessment & Plan (1) Vision problem: Code(s): H54.7 - Unspecified visual loss Category: Medical Plan: - The patient was referred to a vision center for evaluation of his hazy vision and difficulty with near vision. - Advised that it may take some time to secure an appointment. (2) Multiple lipomas: Code(s): D17.9 - Benign lipomatous neoplasm, unspecified Category: Medical Plan: - The patient was referred to General Surgery for evaluation of the lipomas and to discuss management options. - The patient was informed that the surgery department will contact him to schedule an appointment. - Discussed the possibility that surgery may not be recommended if the risks ou tweigh the benefits. (3) Hyperlipidemia: Code(s): E78.5 - Hyperlipidemia, unspecified Category: Medical Qualifiers: Hyperlipidemia type: mixed hyperlipidemia Qualified Code(s): E78.2 - Mixed hyperlipidemia Plan: - A repeat lipid panel, CBC, CMP, and A1c were ordered to be completed in six months. - The patient will follow up with his primary care provider, Dr. Becerra, in six months for his annual exam to review results and discuss further management. (4) Colon cancer screening: Code(s): Z12.11 - Encounter for screening for malignant neoplasm of colon Category: Medical Plan: - A new order was placed for a colonoscopy. - The patient was provided with the contact number for the endoscopy department and advised to call to reschedule his missed appointment. Plan I addressed the patient's multiple concerns during this visit. For the lipomas on his left shoulder, I placed a referral to General Surgery for evaluation and to discuss potential excision, and I informed him they would contact him for an appointment. We discussed that the surgeon will provide their expert opinion on whether removal is the best option after considering all risks and benefits. Regarding his plantar fasciitis, I advised him to continue his care with the banana handler and to discuss using shoe inserts and how his pain is affecting his physical activity. For his vision changes, I referred him to an eye doctor and noted that it might take time to get an appointment. We reviewed his recent labs, which showed elevated cholesterol, likely related to his reduced activity from foot pain. I ordered repeat labs, including a CBC, CMP, lipid panel, and A1c, to be done in six months prior to his scheduled annual exam with his primary doctor, Dr. Becerra, which he should keep. I also reordered his colonoscopy and provided him with the necessary information to reschedule it. Orders: Orders Complete Blood Count no Diff 6 Months Z00.00 - Encounter for general adult medical examination without abnormal findings Comprehensive Met. Panel 6 Months Z00.00 - Encounter for general adult medical examination without abnormal findings Lipid Panel 6 Months E78.2 - Mixed hyperlipidemia Hemoglobin A1c 6 Months Z00.00 - Encounter for general adult medical examination without abnormal findings Referrals Open Access Screening Colonoscopy Referral Z12.11 - Encounter for screening for malignant neoplasm of colon, Z12.12 - Encounter for screening for malignant neoplasm of rectum General Surgery Referral D17.9 - Benign lipomatous neoplasm, unspecified Ophthalmology Referral H54.7 - Unspecified visual loss
== END 2025-11-17 09:05 | disposition home or self-care (01) ==
PROVIDERS: PCP Physician Assistant; Visit Provider Internal Medicine
DX: H54.7 Unspecified visual loss (principal); D17.9 Benign lipomatous neoplasm, unspecified; E78.2 Mixed hyperlipidemia; Z12.11 Encounter for screening for malignant neoplasm of colon

== ENCOUNTER → 2025-11-17 08:19 | Outpatient (BNVA) | payer OTHER, SELFPAY | PROVIDERS: PCP Physician Assistant; Visit Provider Internal Medicine | DX: E78.2 Mixed hyperlipidemia (principal); D17.9 Benign lipomatous neoplasm, unspecified; M72.2 Plantar fascial fibromatosis; H54.7 Unspecified visual loss | CPT/HCPCS: 99212 ==